=== PATIENT | male | born 1945 | race Caucasian/White ===

== ENCOUNTER → 2016-02-21 | Outpatient (CLI) | payer OTHER ==
[2016-02-21] VITALS (13 sets, daily range): BP systolic 109–143; BP diastolic 33–53; PULSE 54–67; TEMP 36.6; O2SAT 93–100; Ht 177.8 cm; Wt 80.0 kg
[~2016-02-21] VITALS: Ht 177.8 cm; Wt 80.0 kg
[~2016-02-21] MED LIST: AMLO5TAB2 PO; AMOX500C3 PO; ASPCH81 PO; BENZOCAIN/TETRACA/BUTAM SPRAY 200 APPLN/20 GM SPRY ONE; CANNULA ONE; CARV6.252 PO; CYCL0.05 OP; FENTANYL CITRATE INJ 50 MCG/1 ML 2 ML VIAL ONE; GARL1TAB11; HYDR5TAB27 PO; LIDOCAINE HCL 2% VISC SOLN 20 ML UDC ONE; LOSA50TA6 PO; MAGN400T24 PO; METO25TA56 PO; MIDAZOLAM HCL 1 MG/ML 2ML VIAL ONE; MULT-506 PO; NTRGSL/4 UT; NUTRTAB55; OMEG10007 PO; ROSU20TA PO; SENN1TAB65 PO
--- NOTE | 2016-02-21 09:39 | History & Physical Bridge Note ---
H&P Re-Evaluation Bridge Note: I have examined the patient, reviewed the History & Physical and in the interval since the performance of the History & Physical I have noted the following changes of clinical significance: No changes noted
--- NOTE | 2016-02-21 09:40 | Procedure Note ---
Pre-Mod Sedation Assessment General Date of Moderate Sedation: Feb 21, 2016. Vital Signs: Vital Signs Past 12 Hours Date Time Temp Pulse Resp B/P Pulse Ox O2 Delivery O2 Flow Rate FiO2 02/21/16 08:39 36.6 56 16 121/33 98 Room Air Review Cardiovascular: regular rate, rhythm, no murmur Abdomen: non tender Lungs: lungs clear Airway Class: II Pre-Sedation Airway Assessment Oral Cavity: WNL Short Thick Neck: No Hx of Sleep Apnea: No Smoking Status: Never Smoker Mallampati Classification: Class II Procedure Planning Contraindications-for Mod Sed: None Yes Notes The planned sedation has been discussed with the patient and consent obtained. I have identified the patient, determined the appropriateness of sedation and have assessed the patient immediately prior to the procedure. All medicine(s) and interventions are by my order.
--- NOTE | 2016-02-21 09:47 | Cardiology Procedure Brief Nt ---
Preliminary Cardiology Note Procedure Date Feb 21, 2016. Pre-Procedure Diagnosis Bioprosthetic Aortic valve regurgitation Post-Procedure Diagnosis moderate AR Sod Cutter Vonnie Alston DO Inspector Missile(s) EMY Johnson Estimated Blood Loss none Preliminary Findings Moderate AR. Recommendations Continue current medications. Repeat Transthoracic echocardiogram in one year as outpatient. Specimens not applicable Anesthesia 3 mg IV versed, 75 mcg IV fentanyl Complication(s) None Disposition Recovery in cardiopulmonary , then discharge to home.
--- NOTE | 2016-02-21 09:51 | Discharge Instructions ---
Discharge Instructions Procedure Procedure Date: Feb 21, 2016. Reason for Visit: Aortic Valve Regurgitation *[place] To Do. Discharge Discharge Date: Feb 21, 2016. Discharge Diagnosis: Moderate aortic valve regurgitation Last Recorded Wt (Kilograms): 80.000 Anesthesia Post Anesthesia Instructions: If you have had General Anesthesia or IV Sedation: * Do not drive today. * Resume driving when surgeon permits. * Do not make important decisions or sign legal documents today. * Call surgeon for: 1. Temperature elevations greater than 101 degrees F. 2. Uncontrollable pain. 3. Excessive bleeding. 4. Persistent nausea and vomiting. 5. Medication intolerance (nausea, vomiting or rash). * For nausea and vomiting use only clear liquids such as: tea, soda, bouillon until nausea subsides, then gradually increase diet as tolerated. * If you have any concerns or questions, call your surgeon's office. If physician is unavailable and it is an emergency, call 911 or go to the nearest emergency room. Instructions Activity Recommendations: limitations as noted below Recommended Home Diet: resume previous diet Allergies: Coded Allergies: Crab (Unverified Allergy, Unknown, SWELLING, 01/06/14) Lobster (Unverified Allergy, Unknown, SWELLING, 01/06/14) Shrimp (Unverified Allergy, Unknown, SWELLING, 01/06/14) Provider Instructions ACTIVITY RECOMMENDATIONS: Resume activities as tolerated with no limitations unless specified. _x_ No lifting over _10_ pounds for 24 hours. _x_ Do not engage in vigorous exercise, sexual activity, or sports for 24 hours. _x_ Do not drive or operate any motorized equipment for 24 hours. _x_ You may return to work/school tomorrow. _x_ Nothing to eat or drink until gag reflex returns. _x_ No HOT or WARM liquids for _24_ hours. _x_ Avoid "scratchy" foods such as potato chips or pretzels for 24 hours following procedure. SPECIAL CARE: If you experience coughing up or vomiting of blood, contact _Dr Alston __ Follow Up Follow-up with: Dr Alston as planned. Alyson Dent Recommendations: Call your doctor if: * Temperature above 101 degrees * Pain not relieved by pain medicine ordered * There is increased drainage or redness from any incision * You have any unanswered questions or concerns. Your Doctors Instructions noted above were prepared by provider Evangelista Alston. Patient Signature Section: Patient Instructions Signature Page Danial Kim Patient (or Guardian) Signature/Date: I have read and understand the instructions given to me by my caregivers. Caregiver/RN/Doctor Signature/Date: The above-named patient and/or guardian has received patient instructions on this date. + Original Patient Signature Page (only) stays with chart. Please make copy for patient.
--- NOTE | 2016-02-21 11:37 | TEE ---
*NOTICE TO RECEIVING [employer] This information is strictly Confidential and protected under [place] law. [place] law prohibits you from making any further disclosure of this information unless further disclosure is expressly permitted by the written consent of the person to whom it pertains or is authorized by law. A general authorization for the release of medical or other information is not sufficient for this purpose. Hospital accepts no responsibility if the information is made available to any other person, INCLUDING THE PATIENT. Interpretation Summary * Name: SHERMAN CUNNINGHAM Study Date: 02/21/2016 09:04 AM BP: 143/51 mmHg * Patient Location: [facility] HR: 55 * : 1945 (M/d/yyyy) Gender: Male Height: 70 in * Age: 70 yrs Ethnicity: [place] * Ordering Physician: Evangelista Alston DO, FACC * Performed By: Brittney Domingo RCS * * Reason For Study: BIO AORTIC VALVE / AORTIC VALVE REGURGITATION * -- Conclusions -- * There is a bioprosthetic aortic valve. * The bioprosthetic leaflets are freely mobile with no hemodynamically significant aortic stenosis. * Moderate bioprosthetic aortic valve regurgitation is present. * The aortic root and proximal ascending aorta are normal sized. Procedure Details * KASEY Probe #3 was administered. * The study was performed in Cardiopulmonary Department. * Time out was conducted by the physician, nurse, and breeding technician with positive identification of patient and procedure. * Informed consent for Transesophageal Echocardiogram was obtained prior to the procedure. * An intravenous line was placed. A topical anesthetic agent was used for oropharangeal anesthesia. A bite block was inserted. * The patient's vital signs, including blood pressure, heart rate, pulse oximetry and cardiac rhythm were monitored throughout the procedure . * Fentanyl 75 mcg was administered for procedural sedation. * Midazolam 3 mg administered for sedation. * The posterior oropharynx was anesthetized using a topical anesthetic spray. A bite guard was inserted. * A multifrequency, multiplane transesopheageal echocardiographic endoscope was inserted and manipulated in the standard fashion to achieve multiplane views. * The transesophageal probe was passed without difficulty. * The usual views were obtained; basal, mid-esophageal, transgastric and aortic views. * The patient tolerated the procedure well without evidence of orophangeal or esophageal trauma. * A 2D transesophageal echocardiogram with spectral and color flow Doppler was performed. Left Ventricle * The left ventricle is normal in size. * There is normal left ventricular wall thickness. * Left ventricular systolic function is normal. * Ejection Fraction = 60-65%. * The left ventricular wall motion is normal. Right Ventricle * The right ventricle is normal in size and function. Atria * The left atrial size is normal. * No thrombus is detected in the left atrial appendage. * No left atrial mass or thrombus visualized. * Right atrial size is normal. * The interatrial septum is intact with no evidence for an atrial septal defect. Mitral Valve * The mitral valve anatomy is normal. * There is no mitral valve prolapse present. * There is no vegetation seen on the mitral valve. * There is no mitral valve stenosis. * There is mild mitral regurgitation. Tricuspid Valve * The tricuspid valve is normal. * There is no tricuspid stenosis. * There is mild tricuspid regurgitation. Aortic Valve * There is a bioprosthetic aortic valve. * The bioprosthetic leaflets are freely mobile with no hemodynamically significant aortic stenosis. Moderate bioprosthetic aortic valve regurgitation is present. Pulmonic Valve * The pulmonic valve is not well seen, but is grossly normal. Great Vessels * The aortic root and proximal ascending aorta are normal sized. Pericardium * There is no pericardial effusion.
--- NOTE | 2016-02-22 08:31 | Procedure Note ---
Post-Mod Sedation Assessment General Date of Moderate Sedation Feb 22, 2016. Vital Signs: Stable Review - Discharge Criteria Vital Signs Stable: Yes Alert/Oriented/Conversant: Yes Nausea Absent/Minimal: Yes Pain/Discomfort/Absent/Minimal: Yes Normal/Baseline Respirations: Yes Active Bleeding?: No Pt Received D/C Instructions: Yes Prescriptions Given: None Specific Proced. D/C Criteria Distal Pulses Present (Cardiac: N/A Groin site assessed-Card Cath: N/A Voided Prior To Discharge: N/A Discharged Patients Adult Escort/Transportation: Yes
== END | disposition home or self-care (01) ==
LOC: C.CPL 07:55
PROVIDERS: ATTEND Specialist
DX: Z95.2 Presence of prosthetic heart valve (principal)

== ENCOUNTER 2017-04-27 23:41 | Emergency (ER) | payer OTHER ==
[~2017-04-27] VITALS: Ht 177.8 cm; Wt 73.1 kg
[~2017-04-27 23:41] MED LIST changes: -BENZOCAIN/TETRACA/BUTAM SPRAY 200 APPLN/20 GM SPRY ONE; -CANNULA ONE; -CYCL0.05 OP; -FENTANYL CITRATE INJ 50 MCG/1 ML 2 ML VIAL ONE; -LIDOCAINE HCL 2% VISC SOLN 20 ML UDC ONE; -METO25TA56 PO; -MIDAZOLAM HCL 1 MG/ML 2ML VIAL ONE; -MULT-506 PO
[2017-04-27 23:47] VITALS: TEMP 36.4; Ht 177.8 cm; Wt 73.1 kg
[2017-04-27 23:58] VITALS: O2SAT 98
[2017-04-28] MEDS ORDERED: AMLO2.5T PO (00:07)
[2017-04-28] MEDS ORDERED: ASPI81TA28 PO (00:09)
[2017-04-28] MEDS ORDERED: DTR/5 PO (00:13)
[2017-04-28] MEDS ORDERED: MULT60CA PO (00:16)
[2017-04-28] MEDS ORDERED: POLY99.0 OPB (00:23)
[2017-04-28] MEDS ORDERED: SILD1TAB25 PO (00:25)
[2017-04-28 00:28] LABS: HEMATOCRIT 43.2 % (42-52); HEMOGLOBIN 14.8 g/dL (14.0-18.0); MEAN CELL VOLUME 88.7 fL (80-100); MEAN CORPUSCULAR HEMOGLOBIN 30.4 pg (25-34); MEAN CORPUSCULAR HGB CONC 34.3 g/dl (32-36); MEAN PLATELET VOLUME 9.9 fL (7.4-10.4); NUCLEATED RED BLOOD CELL ABS 0.07 K/uL (0-0); PLATELET COUNT 165 K/uL (130-400); RED CELL DISTRIBUTION WIDTH CV 14.2 % (11.5-14.5); RED CELL DISTRIBUTION WIDTH SD 46.1 fL (36.4-46.3); WHITE BLOOD COUNT 10.59 K/uL (4.8-10.8)
[2017-04-28] MEDS ORDERED: GLUC1CAP35 PO (00:36)
[2017-04-28 00:46] LABS: ALBUMIN 3.6 gm/dl (3.4-5.0); ALT/SGPT 60 U/L (12-78); BLOOD UREA NITROGEN 26 mg/dl (7-18); CALCIUM 8.6 mg/dl (8.5-10.1); CARBON DIOXIDE 25 mmol/L (21-32); CREATININE 1.39 mg/dl (0.60-1.40); GLUCOSE 97 mg/dl (70-99); LIPASE 588 U/L (73-393); POTASSIUM 3.9 mmol/L (3.5-5.1); SODIUM 140 mmol/L (136-145)
[2017-04-28 00:52] LABS: ALKALINE PHOSPHATASE 63 U/L (45-117); AST/SGOT 83 U/L (15-37); CKMB 1.4 ng/ml (0.5-3.6)
[2017-04-28 01:06] LABS: BASO % 0.3 %; BASO ABS # 0.03 K/uL (0-0.2); EOS % 1.6 %; EOS ABS # 0.17 K/uL (0-0.5); IG# 0.02 K/uL (0.00-0.02); LYMPH % 55.3 %; LYMPH ABS # 5.86 K/uL (1.2-3.4); MONO % 5.7 %; NEUT % 36.9 %; NEUT ABS # 3.91 K/uL (1.4-6.5)
[2017-04-28 03:36] LABS: LIPASE 841 U/L (73-393)
[2017-04-28 05:19] VITALS: BP 128/74; PULSE 64; O2SAT 98
--- NOTE | 2017-04-28 05:48 | DIAGNOSTIC IMAGING REPORT ---
CHEST ONE VIEW PORTABLE CLINICAL HISTORY: cp/sob dyspnea COMPARISON STUDY: 10/11/2012 FINDINGS: Lungs are clear. Diaphragms are smooth. Prior median sternotomy. No acute infiltrate. IMPRESSION: Negative chest. The above report was generated using voice recognition software. It may contain grammatical, syntax or spelling errors. Electronically signed by: Shimon Lopez M.D. 04/28/2017 5:46 AM Dictated Date/Time: 04/28/2017 5:46 AM
--- NOTE | 2017-04-28 06:15 | EMERGENCY ROOM VISIT NOTE ---
History Report prepared by Monique: Jeanna Zarate Under the Supervision of: Dr. Margot Harmon D.O. First contact with patient: 23:56 Chief Complaint: CHEST PAIN Stated Complaint: CHEST PAIN ON/OFF History of Present Illness The patient is a 72 year old male who presents to the Emergency Room with complaints of intermittent chest pain starting this evening. The patient states that he traveled from [place] by car for 12 hours today. He states that upon arrival he had some wine and a little kielbasa. He reports that the chest pain came on suddenly. He states that he took a nitro and it helped. He reports that he started the half hour car ride into the hospital. He states that he felt the pain return and his mouth filled with water. He reports that he vomited and took another Nitro. He reports that the pain subsided again. The patient states that upon arrival the pain was gone, but reports that it started while getting settled into the room. He currently states that the pain is almost gone. The patient denies leg pain and nausea. He notes that he is unsure if he was short of breath from the pain, but his notes that she heard him gasping while driving in. 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 Source of History: patient Onset: this evening Position: chest Timing: intermittent Modifying Factors (Relieving): other (Nitro) Associated Symptoms: + SOB, + vomiting, No nausea Note: The patient denies leg pain. Review of Systems See HPI for pertinent positives & negatives. A total of 10 systems reviewed and were otherwise negative. Past Medical & Surgical Medical Problems: (1) CLL (chronic lymphocytic leukemia) (2) Coronary artery bypass grafts x 3 (3) Heart disease (4) Hernia repair (5) Hyperlipidemia (6) Replacement of aortic valve Family History Patient reports no known family medical history. Social History Smoking Status: Never Smoker Alcohol Use: occasionally Marital Status: Housing Status: lives with family Occupation Status: retired Current/Historical Medications Scheduled Amlodipine (Norvasc), 2.5 MG PO DAILY Amoxicillin (Amoxil), 500 MG PO PRN/UD Aspirin (Aspirin Ec), 81 MG PO DAILY Carvedilol (Coreg), 6.25 MG PO BID Zyijsyqofyt-Lqhtaryzzzp-Dzf C- (Glucosamine Chondroitin), 1 CAP PO BID Losartan Potassium (Cozaar), 50 MG PO DAILY Multiple Vitamins W/ Minerals (Preservision Areds 2), 1 CAP PO BID Nitroglycerin (Nitrostat), 0.4 MG UT PRN Polyvinyl Alcohol (Artificial Tears), 1 DROP OPB BID Rosuvastatin Calcium (Crestor), 20 MG PO DAILY Sildenafil Citrate (Revatio), 20-100 MG PO PRN Scheduled PRN Oxybutynin Chloride (Ditropan), 5 MG PO TID PRN for BLADDER SPASMS Allergies Coded Allergies: Crab (Unverified Allergy, Unknown, SWELLING, 01/06/14) Iodinated Diagnostic Agents (Verified Allergy, Unknown, UNKNOWN, 04/28/17) Lobster (Unverified Allergy, Unknown, SWELLING, 01/06/14) Shrimp (Unverified Allergy, Unknown, SWELLING, 01/06/14) Physical Exam Vital Signs Date Time Temp Pulse Resp B/P (MAP) Pulse Ox O2 Delivery O2 Flow Rate FiO2 04/28/17 05:19 64 18 128/74 98 04/28/17 03:42 63 20 126/48 95 Room Air 04/28/17 02:04 74 18 107/45 95 Room Air 04/28/17 00:38 58 18 143/88 92 Room Air 04/28/17 00:00 57 04/27/17 23:58 98 Room Air 04/27/17 23:47 36.4 56 16 141/49 97 Room Air Physical Exam HEENT: Head - normocephalic and atraumatic Pupils are equal, round, and reactive to light. Extraocular eye muscles are intact, and sclera are anicteric. Nose - moist nasal mucosa without discharge. Mouth - moist buccal mucosa. Oropharynx is nonerythematous and there is no tonsillar exudate or edema noted. Neck: Supple; no JVD, nuchal rigidity, cervical lymphadenopathy. Heart: Regular rate and rhythm. There is a normal S1 and S2 with no murmurs, clicks, or gallops appreciated. Lungs: Clear to auscultation bilaterally with no wheezes, rales, or rhonchi. Abdomen: Soft, slight tenderness to palpation in the epigastrium, nondistended, with good bowel sounds. There are no palpable pulsatile masses or hepatosplenomegaly. There is no guarding, rigidity, or rebound noted. Extremities: No evidence of cyanosis, clubbing, or edema. There are easily palpable peripheral pulses. Skin: warm and dry with good turgor and no rashes. Medical Decision & Procedures ER Provider Diagnostic Interpretation: Radiology results as stated below per my review and the radiologist's interpretation: CHEST X-RAY: The results were interpreted by me. No obvious cardiomegaly. No pneumothorax or pulmonary consolidation. Narrow mediastinum . CT ABDOMEN & PELVIS Without Contrast: Lower thorax is unremarkable. Probable cyst within the left hepatic lobe. Gallbladder is surgically absent. Spleen, pancreas, and adrenal glands are unremarkable. Atrophy of the right kidney with a nonobstructing calculus. Left kidney is unremarkable. Prostate gland is mildly enlarged. Noninflamed colonic diverticulosis. Appendix is not clearly identified. Vascular calcifications. No acute osseous abnormality. Radiologist: Carlos Nascimento MD Study ready at 04:27 and initial results were transmitted at 04:46. Laboratory Results 04/27/17 23:58 Red Blood Count 4.87, Mean Corpuscular Volume 88.7, Mean Corpuscular Hemoglobin 30.4, Mean Corpuscular Hemoglobin Concent 34.3, Mean Platelet Volume 9.9, Neutrophils (%) (Auto) 36.9, Lymphocytes (%) (Auto) 55.3, Monocytes (%) (Auto) 5.7, Eosinophils (%) (Auto) 1.6, Basophils (%) (Auto) 0.3, Neutrophils # (Auto) 3.91, Lymphocytes # (Auto) 5.86, Monocytes # (Auto) 0.60, Eosinophils # (Auto) 0.17, Basophils # (Auto) 0.03 04/27/17 23:58 Test 04/27/17 23:58 04/28/17 02:05 White Blood Count 10.59 K/uL (4.8-10.8) Red Blood Count 4.87 M/uL (4.7-6.1) Hemoglobin 14.8 g/dL (14.0-18.0) Hematocrit 43.2 % (42-52) Mean Corpuscular Volume 88.7 fL (80-100) Mean Corpuscular Hemoglobin 30.4 pg (25-34) Mean Corpuscular Hemoglobin Concent 34.3 g/dl (32-36) Platelet Count 165 K/uL (130-400) Mean Platelet Volume 9.9 fL (7.4-10.4) Neutrophils (%) (Auto) 36.9 % Lymphocytes (%) (Auto) 55.3 % Monocytes (%) (Auto) 5.7 % Eosinophils (%) (Auto) 1.6 % Basophils (%) (Auto) 0.3 % Neutrophils # (Auto) 3.91 K/uL (1.4-6.5) Lymphocytes # (Auto) 5.86 K/uL (1.2-3.4) Monocytes # (Auto) 0.60 K/uL (0.11-0.59) Eosinophils # (Auto) 0.17 K/uL (0-0.5) Basophils # (Auto) 0.03 K/uL (0-0.2) RDW Standard Deviation 46.1 fL (36.4-46.3) RDW Coefficient of Variation 14.2 % (11.5-14.5) Immature Granulocyte % (Auto) 0.2 % Immature Granulocyte # (Auto) 0.02 K/uL (0.00-0.02) Nucleated RBC Absolute Count (auto) 0.07 K/uL (0-0) Nucleated Red Blood Cells % 0.7 % Blood Smear Review Red Blood Cell Morphology Unremarkable D-Dimer 390 ug/L FEU (0-500) Anion Gap 8.0 mmol/L (3-11) Est Creatinine Clear Calc Drug Dose 48.1 ml/min Estimated GFR () 57.5 Estimated GFR (Non- 49.6 BUN/Creatinine Ratio 18.8 (10-20) Calcium Level 8.6 mg/dl (8.5-10.1) Total Bilirubin 0.6 mg/dl (0.2-1) Direct Bilirubin 0.2 mg/dl (0-0.2) Aspartate Amino Transf (AST/SGOT) 83 U/L (15-37) Alanine Aminotransferase (ALT/SGPT) 60 U/L (12-78) Alkaline Phosphatase 63 U/L (45-117) Total Creatine Kinase 58 U/L (39-308) Creatine Kinase MB 1.4 ng/ml (0.5-3.6) Creatine Kinase MB Ratio 2.4 (0-3.0) Total Protein 7.0 gm/dl (6.4-8.2) Albumin 3.6 gm/dl (3.4-5.0) Troponin I < 0.015 ng/ml (0-0.045) Lipase 841 U/L (73-393) Laboratory results per my review. ECG Per My Interpretation Indication: chest pain Rate (beats per minute): 55 Rhythm: sinus bradycardia Findings: no acute ischemic change, no ectopy Comparison ECG Date: REPEAT Change: The repeat EKG was performed while the patient was having chest pain. Sinus bradycardia at a rate of 57. No acute ischemia. No ectopy. ED Course 7618: Past medical records reviewed. The patient was evaluated in room B2. A complete history and physical exam was performed. A 12-lead EKG was obtained as described above. An IV lock was initiated and labs are drawn as above. The patient had an episode of vomiting upon arrival and has felt better since. 0145: I reevaluated the patient and he is doing well. 0338: I updated the patient that we are still waiting for labs and he is sound asleep. The patient had a mildly elevated lipase on his initial lab work. We have repeated this and are awaiting the result. 0352: The patient's lipase has gone up by 300 and therefore he will go for a CT scan of the abdomen/pelvis to rule out pancreatitis. I updated the patient on his test results and notified him that he needs a CT. 0508: Upon reevaluation, the patient is comfortable. I discussed findings and results with him. He verbalized agreement of the treatment plan. The patient was discharged home. Medical Decision The patient is a 72 year old male who presents to the Emergency Room with complaints of intermittent chest pain starting today. Differential diagnoses include PE, ACS, GERD, pancreatitis, aortic dissection. LABS: First Lipase 588, Second lipase 841 LFTs normal Two troponin were negative BUN 26 Creatinine 1.3 No leukocytosis Stable H&H D-Dimer 390 This is a 72-year-old male patient who presents to the emergency department with severe chest discomfort, nausea and vomiting. The patient states that the symptoms were sudden onset. He does describe feeling much better after his episode of vomiting. EKG was unremarkable. The patient had 2 sets of negative cardiac enzymes. Patient had a mildly elevated lipase upon arrival. This was repeated and had gone up even higher. For that reason, the patient went for a CT scan of the abdomen/pelvis to rule out pancreatitis. This was negative. The patient's repeat exam revealed no epigastric pain with palpation. He was encouraged to take a bland diet and avoid alcohol over the next couple days. He is to follow-up with his PCP for a recheck Medication Reconcilliation Current Medication List: was personally reviewed by me Blood Pressure Screening Patient's blood pressure: Normal blood pressure Blood pressure disposition: Did not require urgent referral Impression Primary Impression: Midsternal chest pain Additional Impression: Vomiting Scribe Attestation The scribe's documentation has been prepared under my direction and personally reviewed by me in its entirety. I confirm that the note above accurately reflects all work, treatment, procedures, and medical decision making performed by me. Departure Information Dispostion Home / Self-Care Referrals Kinsey Connor M.D. (PCP) Forms Call Back Authorization, HOME CARE DOCUMENTATION FORM, IMPORTANT VISIT INFORMATION Patient Instructions My [facility] Additional Instructions Rest Take a very bland diet and plenty of clear liquids Follow up with PCP this week for repeat lipase. Return to the ER if you develop worsening symptoms Problem Qualifiers Additional Impression: Vomiting Vomiting type: unspecified Vomiting Intractability: non-intractable Nausea presence: with nausea Qualified Codes: R11.2 - Nausea with vomiting, unspecified
--- NOTE | 2017-04-28 06:22 | DIAGNOSTIC IMAGING REPORT ---
ABD/PELVIS NO IV OR ORAL CONT CT DOSE: 366.58 mGy.cm HISTORY: Pain eval for pancreatitis (dye allergy) TECHNIQUE: Multiaxial CT images of the abdomen and pelvis were performed without contrast. A dose lowering technique was utilized adhering to the principles of ALARA. COMPARISON STUDY: 10/10/2012 FINDINGS: Findings of an interval cholecystectomy. Lung bases are considered clear. Small stable hepatic cyst. Atrophy of the right kidney with a small nonobstructing cortical calcification. Left kidney is negative for hydronephrosis. Nonobstructive bowel pattern. Chronic sigmoid diverticulosis. No evidence for acute diverticulitis. IMPRESSION: 1. Stable atrophy right kidney. 2. Interval cholecystectomy. 3. Chronic sigmoid diverticulosis. 4. No acute process of the abdomen or pelvis. The above report was generated using voice recognition software. It may contain grammatical, syntax or spelling errors. Electronically signed by: Shimon Lopez M.D. 04/28/2017 6:21 AM Dictated Date/Time: 04/28/2017 6:19 AM
== END 2017-04-28 05:20 | disposition home or self-care (01) ==
LOC: C.EDB 23:42
DX: R07.89 Other chest pain (principal); R11.10 Vomiting, unspecified; E78.5 Hyperlipidemia, unspecified; Z95.3 Presence of xenogenic heart valve; Z85.6 Personal history of leukemia; Z95.1 Presence of aortocoronary bypass graft; Z79.82 Long term (current) use of aspirin

== ENCOUNTER 2018-12-10 12:30 | Inpatient (IN) ==
[2018-12-10 12:53] LABS: Basophils # (auto) 0.03 K/uL (0-0.2); Basophils % (auto) 0.3 %; Eosinophils # (auto) 0.06 K/uL (0-0.5); Eosinophils % (auto) 0.7 %; Hematocrit (blood only) 45.2 % (42-52); Hemoglobin 15.3 g/dL (14.0-18.0); Immature Granulocytes # (auto) 0.01 K/uL (0.00-0.02); Immature Granulocytes % (auto) 0.1 %; Lymphocytes # (auto) 3.92 K/uL (1.2-3.4); Lymphocytes % (auto) 43.7 %; Mean Corpuscular Hemoglobin 29.9 pg (25-34); Mean Corpuscular Hgb Conc 33.8 g/dL (32-36); Mean Corpuscular Volume 88.3 fL (80-100); Mean Platelet Volume 10.1 fL (7.4-10.4); Monocytes % (auto) 6.7 %; Neutrophils # (auto) 4.36 K/uL (1.4-6.5); Neutrophils % (auto) 48.5 %; Platelet Count 154 K/uL (130-400); RDW Coefficient of Variation 14.1 % (11.5-14.5); RDW Standard Deviation 45.8 fL (36.4-46.3); Red Blood Count 5.12 M/uL (4.7-6.1); White Blood Count 8.98 K/uL (4.8-10.8)
[2018-12-10 13:10] LABS: Albumin Level 3.7 gm/dl (3.4-5.0); Creatinine Clr Calc Pharmacy 50.7 ml/min; Est GFR (African American) 61.9; Est GFR (Non-African American) 53.4; Potassium 4.8 mmol/L (3.5-5.1)
[2018-12-10 13:15] LABS: Albumin Globulin Ratio 1.2 (0.9-2); Bilirubin,Total 0.8 mg/dl (0.2-1); Globulin 3.1 gm/dl (2.5-4.0); Total Protein 6.8 gm/dl (6.4-8.2); Troponin I 0.018 ng/ml (0-0.045)
--- NOTE | 2018-12-10 13:18 | XRay Report ---
XR chest 1V portable CLINICAL HISTORY: Chest Pain pain COMPARISON STUDY: 11/17/2017 FINDINGS: The lungs are clear. Prior median sternotomy. Diaphragms are smooth. IMPRESSION: No acute process. The above report was generated using voice recognition software. It may contain grammatical, syntax or spelling errors. Electronically signed by: Shimon Lopez M.D. 12/10/2018 1:17 PM
--- NOTE | 2018-12-10 13:23 | Cardiology Consultation ---
Date of Consultation December 10, 2018 Assessment & Plan (1) Third degree AV block: Patient presents with one week of exertional shortness of breath, easy fatigability, and dizziness. Currently on my assessment the emergency room, he is in third-degree atrioventricular block with a stable ventricular escape rhythm, and he is normotensive. The patient is an avid outdoorsman. He had recently been bird hunting, and some ticks were removed from his dog, and an engorged tick was actually found on the patient's bed, but he believes it could have come from his dog. He personally did not have any ticks removed from his body recently, he has not had any rashes, and he has not had any flulike illness within the last few weeks. He had actually planned to go to [place] on a hunting trip and then to travel to [place] to observe his son who is to complete in an off road automobile race on 11/21/18. Although he is at risk for tick bite, he has a substrate for conduction system disease having had redo aortic valve replacement, with transient postoperative AV block, and then new left bundle branch block noted postoperatively. His electrolytes are within normal limits. He denies any symptoms suggestive angina, and stable chronic coronary heart disease was noted at the time of his preoperative cardiac catheterization earlier this year with stable [place] vessel CAD and patent bypass grafts x3. Plan to admit the patient to the intensive care unit for further observation. I do not think he requires temporary transvenous pacemaker at present because he is hemodynamically stable. Patient will be made n.p.o. after midnight tonight for possible pacemaker tomorrow. A bedside echocardiogram is to be performed to reassess his ejection fraction. Given anticipated need for chronic ventricular pacing, and his pre-existing left bundle branch block, consideration will be made at the time of EP assessment for the most optimal pacing strategy either a dual-chamber device or even a cardiac resynchronization capable device. Case was discussed with Dr. Mancera of EP and as long as the Lyme screen does not come back suggestive of acute infection will plan on pacemaker 12/11/18. Will hold patient's home dose of metoprolol and losartan. History of Present Illness History of Present Illness Danial Kim is a 73 year old male seen in cardiology consultation in the emergency department per the request of Dr Gutierrez for the evaluation of symptomatic bradycardia, complete atrioventricular block. The patient is well-known to the undersigned as I follow him as an outpatient. 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 The patient is very physically active at baseline. And had recovered very well from his surgery. He was back to hiking and hunting. In October, he had contacted me at the office requesting permission to cease cardiac rehabilitation, because he felt that it was not challenging enough for him. Over the last week however he had experienced a dramatic change in his act ivity tolerance. He typically walks behind his who rides a horse. He noted that especially walking up an incline he felt market shortness of breath over the last few days. Most recently yesterday, he had to stop and rest 3 times while walking up the hill. This was similar to the symptom which prompted his redo surgery. He was therefore seen as an acute visit by Shimon Carlos PA-C of our practice today and he was found to have bradycardia with EKG findings of third-degree AV block, with ventricular escape rhythm in the 40 to 45 bpm range at rest. His blood pressure was normal in the office with reading of 122/76. When I had seen him in the emergency room, room C9, a blood pressure was retaken during my assessment and was 139/76. He notes no tammi syncope, but he did note dizziness yesterday. As noted, the patient is status post redo bioprosthetic aortic valve replacement at [facility] in August 2018. His postoperative course was comp gated by anemia and complete heart block with junctional rhythm. Ultimately he returned to sinus rhythm with a new left bundle branch block. An echocardiogram performed in September 2018 as an outpatient revealed mild left ventricular systolic dysfunction and abnormal septal motion consistent with left bundle branch block both of which were new developments as his ejection fraction had been normal preoperatively. Problem List: 1.Congenitally bicuspid aortic valve with severe aortic valve stenosis and multivessel coronary artery disease status post AVR and CABG x3 in 2005, 25 mm Marquis-Waller bioprosthesis, JAIN to the LAD, SVG to the circumflex, SVG to the distal RCA at that time. 2.[facility] Right-dominant coronary anatomy. 40% ostial left main. 50% lad stenosis after the 2nd diagonal branch. Non dominant left circumflex with the origin narrowed by 50%. 60% ostial RCA stenosis, 60% proximal stenosis, 40% midvessel stenosis. Patent JAIN to the LAD 2nd diagonal. Patent SVG to the circumflex obtuse marginal with moderate ectasia of the vessel. Patent SVG to the right PDA. 3.Redo AVR on September 02, 2018 due to bioprosthetic valve dysfunction, severe ao rtic insufficiency, 25 mm [place] Epic prosthesis 4.Hypertension 5.Dyslipidemia 6.Left bundle branch block 7.Mild reduction in left ventricular systolic function, EF 45%. 8.Chronic lymphocytic leukemia 9.Chronic kidney disease Allergies Allergy/AdvReac Type Severity Reaction Status Date / Time crab Allergy Unknown SWELLING Verified 08/06/18 07:27 Iodinated Contrast Media Allergy Unknown CHEST Verified 08/06/18 07:27 DISCOMFORT shrimp Allergy Unknown SWELLING Verified 08/06/18 07:27 Lobster Allergy Unknown SWELLING Uncoded 08/06/18 07:27 Home Medications Home Medications Medication Instructions Recorded Confirmed Type Glucosamine-Chondroitin Complx 1 cap PO BID 11/17/17 08/06/18 History PreserVision AREDS-2 1 tab PO BID 11/17/17 08/06/18 History amlodipine 2.5 mg PO QAM 11/17/17 08/06/18 History amoxicillin 500 mg PO DIRECTED PRN 11/17/17 08/06/18 History aspirin 81 mg PO QAM 11/17/17 08/06/18 History carvedilol 3.125 mg PO BID 11/17/17 08/06/18 History losartan 50 mg PO QAM 11/17/17 08/06/18 History nitroglycerin [Nitrostat] 0.4 mg SUBLINGUAL DIRECTED PRN 11/17/17 08/06/18 History polyvinyl alcohol [Artificial 1 drp OPB BID 11/17/17 08/06/18 History Tears (polyvin alc)] rosuvastatin [Crestor] 20 mg PO QPM 11/17/17 08/06/18 History Patient History Medical History CAD (coronary artery disease) CABG X3 (2005)- JAIN-LAD, SVG-CX, SVG-DRCA Fatigue FELT 2/2 VALVULAR DISEASE PER PT Hx of chronic lymphocytic leukemia ASYMPTOMATIC; ONCOLOGY MONITORING WITH ROUTINE CBCD Hyperlipidemia Hypertension Valvular heart disease S/P BIOPROSTHETIC AVR 2/2 BICUSPID/AORTIC STENOSIS (2005) Family History Other No pertinent family history Social History Preferred Language: Bulgarian Communication Ability: Effective Beliefs That Will Affect Care: None marital status: Current Living Situation: Spouse current occupational status: retired current occupation: retired Feels Safe at Home: Yes Smoking Status: Never smoker Second Hand Exposure: No ; Hx Alcohol Use: Yes Alcohol type: wine Hx Substance Use: No Review of Systems Review of Systems: All systems reviewed & are unremarkable except as noted in HPI & below Physical Exam Physical Exam: Temp Pulse Resp BP Pulse Ox 36.6 C 43 L 17 139/76 99 12/10/18 12:41 12/10/18 13:01 12/10/18 13:01 12/10/18 13:01 12/10/18 13:01 Constitutional: WD/WN, vitals as above Respiratory: normal respiratory effort, lungs clear to auscultation Cardiovascular: Rate/Rhythm: regular rhythm and + bradycardic Heart Sounds: normal S1 and normal S2; no murmur Vessels: no JVD Extremities: no edema Gastrointestinal (Abdomen): normal bowel sounds, soft, nontender, no hepatosplenomegaly Skin: no rashes, warm and dry Neurologic: PERRL, EOMI, accommodation nl, no face palsy, no dysarthria Results & Data Vital Signs (Past 12 Hours) Vital Signs Temp Pulse Resp BP Pulse Ox 12/10/18 13:01 43 L 17 139/76 99 12/10/18 13:00 43 L 15 99 12/10/18 12:50 43 L 17 99 12/10/18 12:41 36.6 C 46 L 18 163/93 H 100 12/10/18 12:40 45 L 22 12/10/18 12:38 45 L 18 164/103 H Diagnostic Findings EKG performed upon arrival to the emergency department revealed third-degree AV block, with ventricular rate of 43 bpm, new compared to prior outpatient EKG 09/23/18 that revealed sinus rhythm with left bundle branch block, AZ interval of 186 ms. Summary of ttecho performed 09/27/18: The left ventricular cavity size is normal. The LV wall thickness is borderline increased (concentric). The septal motion is abnormal consistent with left bundle branch block. The septal motion is abnormal consistent with the post-operative state. There is borderline diffuse left ventricular hypokinesis. The qualitative LV ejection fraction is 45-49% (mildly reduced). There is an aortic valve bioprosthetic present. The aortic valve prosthesis systolic gradients are normal for this type prosthesis. Significant aortic valve prosthesis regurgitation is absent. The mitral valve leaflets thickness is mildly increased. There is trace mitral insufficiency There is trace tricuspid insufficiency There is no evidence of pulmonary hypertension.
[2018-12-10 13:47] LABS: Lyme Ab IgG w/WB Rflx Negative (Negative); Lyme Ab IgM w/WB Rflx Negative (Negative)
--- NOTE | 2018-12-10 14:16 | History & Physical Report ---
Date of Service December 10, 2018 Assessment & Plan (1) Third degree AV block: This is a 73yo M with a PMH of bioprosthetic redo AV replacement @ [facility] in August CAD (s/p CABG in 2005), LBBB, systolic HF, CLL and other medical problems listed below who presents with fatigue and shortness of breath x 1 week and was found to have complete heart block. -Seen in cardiology clinic today by Shimon Carlos PA-C and was found to have bradycardia with EKG findings of third-degree AV block with ventricular escape rhythm in the 40 to 45 bpm range at rest -Heart rate remains in low 40s in ED. BP normotensive at 129/65 -Evaluated by Dr. Alston in ED, who does not feel patient requires temporary transvenous pacemaker at present because he is hemodynamically stable -NPO after midnight tonight for possible pacemaker tomorrow -2D echo with LVEF 45-50% , unchanged compared to 09/2018 -Admitted to ICU for monitoring. Management per parole director -Hold patient's home dose of metoprolol and losartan -Lyme serology negative (2) Dyslipidemia: Continue statin (3) History of aortic valve replacement with bioprosthetic valve: H/o bioprosthetic redo AV replacement @ [facility] in August. Original AV replacement performed in 2005 (4) CLL (chronic lymphocytic leukemia): Follows with heme onc. Asymptomatic from his CLL and lymphocytosis is mild -Next heme onc appt in April 2019 DVT Ppx: SCDs Code status: FULL PCP: Nikolas Dispo: Admitted to ICU. Discharge planning ordered. Patient seen in collaboration with Dr. Anderson. Please see addendum. History of Present Illness Chief Complaint: fatigue, dyspnea on exertion Primary Care Provider: Kinsey Connor MD This is a 73yo M with a PMH of bioprosthetic redo AV replacement @ [facility] in August CAD (s/p CABG in 2005), LBBB, systolic HF, CLL and other medical problems listed below who presents with fatigue and shortness of breath x 1 week. Is very physically active at baseline with hiking and hunting but recently noticed a decline in activity tolerance, becoming SOB walking up an incline and having to stop. Also endorses dizziness yesterday. Denies near syncope, lightheadedness, chest pain or palpitations. Was seen in cardiology clinic today by Shimon Carlos PA-C and was found to have bradycardia with EKG findings of third-degree AV block with ventricular escape rhythm in the 40 to 45 bpm range at rest. Was evaluated by Dr. Alston in ED, who does not feel patient requires temporary transvenous pacemaker at present because he is hemodynamically stable. Also obtained lyme ab since patient is an avid outdoorsman. Will plan to admit to ICU. Dr. Mancera of EP plans for pacemaker placement tomorrow (12/11/18) as long as the Lyme screen does not come back suggestive of acute infection. Will hold patient's home dose of metoprolol and losartan. Denies fever, chills, visual changes, shortness of breath, wheezing, nausea, vomiting, abdominal pain, dysuria, diarrhea or constipation. Allergies Allergy/AdvReac Type Severity Reaction Status Date / Time crab Allergy Unknown SWELLING Verified 08/06/18 07:27 Iodinated Contrast Media Allergy Unknown CHEST Verified 08/06/18 07:27 DISCOMFORT shrimp Allergy Unknown SWELLING Verified 08/06/18 07:27 Lobster Allergy Unknown SWELLING Uncoded 08/06/18 07:27 Home Medications Home Medications Medication Instructions Recorded Confirmed Type PreserVision AREDS-2 1 tab PO BID 11/17/17 12/10/18 History amoxicillin 500 mg PO DIRECTED PRN 11/17/17 12/10/18 History aspirin 81 mg PO QAM 11/17/17 12/10/18 History losartan 50 mg PO QAM 11/17/17 12/10/18 History nitroglycerin [Nitrostat] 0.4 mg SUBLINGUAL DIRECTED PRN 11/17/17 12/10/18 History polyvinyl alcohol [Artificial 1 drp OPB BID 11/17/17 12/10/18 History Tears (polyvin alc)] rosuvastatin [Crestor] 20 mg PO QPM 11/17/17 12/10/18 History metoprolol succinate 25 mg PO DAILY 12/10/18 12/10/18 History Past Med/Surg History Medical History CAD (coronary artery disease) (Chronic) CABG X3 (2005)- JAIN-LAD, SVG-CX, SVG-DRCA Hx of chronic lymphocytic leukemia (Chronic) ASYMPTOMATIC; ONCOLOGY MONITORING WITH ROUTINE CBCD Hyperlipidemia (Chronic) Hypertension (Chronic) Valvular heart disease (Chronic) S/P BIOPROSTHETIC AVR 2/2 BICUSPID/AORTIC STENOSIS (2006) Surgical History Hx of cholecystectomy (Chronic) History of cataract surgery (Chronic) Hx of artificial heart valve replacement (Chronic) S/P AVR + CABG X3 (2005) History of heart valve replacement (Resolved) redo sternotomy and redo AVR on 09/07/2018 Family History Other Lung disease Social History Preferred Language: Lithuanian Communication Ability: Effective Beliefs That Will Affect Care: None marital status: Current Living Situation: Spouse current occupational status: retired current occupation: retired Feels Safe at Home: Yes Smoking Status: Never smoker Second Hand Exposure: No ; Hx Alcohol Use: Yes Alcohol type: wine Hx Substance Use: No Review of Systems Review of Systems: At least ten systems reviewed and negative except as noted in the HPI. Physical Exam Physical Exam: General Appearance: WD/WN, vitals as above, NAD, sitting up in bed, pleasant, conversing easily Head: normocephalic, atraumatic Eyes: normal inspection, PERRL, conjunctivae normal, anicteric sclerae ENT: external ear and nose normal, oropharynx normal Neck: trachea midline, no thyromegaly normal visual inspection Respiratory: normal respiratory effort, lungs clear to auscultation, no wheeze, rales, rhonchi. Normal insp/exp effort, no accessory muscle use Cardiovascular: bradycardic, regular rhythm, no murmur appreciated, normal peripheral pulses. Vessels: no JVD or carotid bruit Chest: normal inspection of chest Abdomen/GI: normal bowel sounds, soft, nontender, no hepatosplenomegaly Extremities/Musculoskelatal: no cyanosis or clubbing, extremities motor strength 5/5 Neurologic: PERRL, EOMI, accommodation nl, no face palsy, no dysarthria CN's II-XI intact bilaterally and moves all extremities Psychiatric: A+Ox3, euthymic affect Skin: no rashes, normal color, warm/dry Results & Data Vital Signs (Past 12 Hours) Vital Signs Temp Pulse Resp BP Pulse Ox 12/10/18 13:01 43 L 17 139/76 99 12/10/18 13:00 43 L 15 99 12/10/18 12:50 43 L 17 99 10/29/19 12:41 36.6 C 46 L 18 163/93 H 100 12/10/18 12:40 45 L 22 12/10/18 12:38 45 L 18 164/103 H Laboratory Results Short CBC 12/10/18 Range/Units 12:48 WBC 8.98 (4.8-10.8) K/uL Hgb 15.3 (14.0-18.0) g/dL Hct 45.2 (42-52) % Plt Count 154 (130-400) K/uL BMP 12/10/18 12:48 Sodium 139 Potassium 4.8 Chloride 107 Carbon Dioxide 26 BUN 21 H Creatinine 1.30 Glucose 96 Calcium 9.0 Cardiac Enzymes 12/10/18 Range/Units 12:48 Troponin I 0.018 (0-0.045) ng/ml Liver Function 12/10/18 Range/Units 12:48 Total Bilirubin 0.8 (0.2-1) mg/dl AST 47 H (15-37) U/L ALT 92 H (12-78) U/L Alkaline Phosphatase 105 (45-117) U/L Albumin 3.7 (3.4-5.0) gm/dl Diagnostic Findings CXR: IMPRESSION: No acute process. ECG Findings: + complete heart block Supervising Physician Co-Signing Physician Notes I have seen and examined the patient and have discussed the case with the provider above. I agree with the assessment and plan as stated with the following exceptions. The patient is a 73-year-old athletic man with a history of congenital bicuspid aortic valve status post replacement in 2005 and subsequent bioprosthetic valve revision in August 2018 presents with complete heart block. He was known to have post operative complete heart block and underlying left bundle branch block which resolved. He subsequently has felt a couple weeks of dyspnea shortness of breath that was associated with mild dizziness and was seen in the office to have A-V dissociation. Physical exam reveals hemodynamic stability. The patient is in no acute distress and is mentating clearly. He is in no respiratory distress. Lungs are clear to auscultation. S1 and S2 are heard with no evidence of murmurs, gallops, rubs. There is no peripheral edema present. No evidence of JVD. Cardiology was consulted and after Lyme serology was negative, EP was consulted for pacemaker placement tomorrow. He was admitted to the ICU for monitoring overnight. Justin DO
--- NOTE | 2018-12-10 14:22 | Critical Care Consultation ---
Date of Consultation December 10, 2018 Assessment & Plan (1) Third degree AV block: -- Third Degree AV block She has new onset third-degree AV block with exertional shortness of breath and easy fatigability. Patient had an underlying left bundle branch block after his repeat AVR done in August 2018. This is likely late complication of his AVR. Patient is a maintaining his blood pressure. Denies any dizziness, no palpitations or syncopal episodes at the time of examination. Given that the patient had taken beta-hunter in the morning we will give him 5mg of glucagon. If there is any hemodynamic compromise we will start the patient on dopamine and put a transvenous pacing wire. Possible of putting a transvenous pacemaker was discussed with the patient. Case was discussed with cardiology Dr. Farias and he has scheduled the patient for pacemaker placement tomorrow in the morning. Patient will be n.p.o. post midnight. Lyme serologies has been negative. -- History of hypertension Hold beta-blockers and antihypertensives medication for the time being --Dyslipidemia Continue with statin --History of bioprosthetic AVR with coronary artery bypass --Secondary hypercoagulable state Lovenox Present on Admission?: Yes (2) Hypertension: (3) Dyslipidemia: (4) History of aortic valve replacement with bioprosthetic valve: History of Present Illness Reason for Consultation: Third-degree AV block History of Present Illness 73-year-old male with past medical history of congenital bicuspid aortic valve status post first replacement in 2015, patient had revision of his bioprosthetic valve done in August 2018, underlying left bundle branch block, hypertension, dyslipidemia comes to the ER sent from hospice nurse office as patient was complaining of exertional dyspnea and shortness of breath associated with mild dizziness. This has been going on since last couple of days. Patient denies any chest pain. After the aortic valve surgery patient was doing pretty good with that his day-to-day activities to such an extent that he did not even need to go to a cardiac rehab. Patient is active morena. Patient denies any knowledge of any tick bites. No rash as per the patient and the who was present at bedside. Patient denies any fever or chills. Does complain of malaise especially after walking or doing any kind of exertion. No cough, no diarrhea, no dysuria. No weight loss, no night sweats. No joint pain. Patient does take beta-hunter at home and he took last dose in the morning today. Patient blood pressure at the time of examination in the ER was 136/ 76 with heart rate of 43. In the ER patient was found to have complete heart block on his EKG with axis. T wave inversions appreciated from V1 to V4. Widened QRS with right bundle branch block pattern. Social history: Non-smoker, no illicit drug use, occasional alcohol. Retired Allergies: Shrimp and iodinated contrast Allergies Allergy/AdvReac Type Severity Reaction Status Date / Time crab Allergy Unknown SWELLING Verified 08/06/18 07:27 Iodinated Contrast Media Allergy Unknown CHEST Verified 08/06/18 07:27 DISCOMFORT shrimp Allergy Unknown SWELLING Verified 08/06/18 07:27 Lobster Allergy Unknown SWELLING Uncoded 08/06/18 07:27 Home Medications Home Medications Medication Instructions Recorded Confirmed Type PreserVision AREDS-2 1 tab PO BID 11/17/17 08/06/18 History amoxicillin 500 mg PO DIRECTED PRN 11/17/17 08/06/18 History aspirin 81 mg PO QAM 11/17/17 08/06/18 History losartan 50 mg PO QAM 11/17/17 08/06/18 History nitroglycerin [Nitrostat] 0.4 mg SUBLINGUAL DIRECTED PRN 11/17/17 08/06/18 History polyvinyl alcohol [Artificial 1 drp OPB BID 11/17/17 08/06/18 History Tears (polyvin alc)] rosuvastatin [Crestor] 20 mg PO QPM 11/17/17 08/06/18 History metoprolol succinate 25 mg PO DAILY 12/10/18 12/10/18 History Patient History Medical History CAD (coronary artery disease) CABG X3 (2005)- JAIN-LAD, SVG-CX, SVG-DRCA Fatigue FELT 2/2 VALVULAR DISEASE PER PT Hx of chronic lymphocytic leukemia ASYMPTOMATIC; ONCOLOGY MONITORING WITH ROUTINE CBCD Hyperlipidemia Hypertension Valvular heart disease S/P BIOPROSTHETIC AVR 2/2 BICUSPID/AORTIC STENOSIS (2005) Family History Other No pertinent family history Social History Preferred Language: Burundian Communication Ability: Effective Beliefs That Will Affect Care: None marital status: Current Living Situation: Spouse current occupational status: retired current occupation: retired Feels Safe at Home: Yes Smoking Status: Never smoker Second Hand Exposure: No ; Hx Alcohol Use: Yes Alcohol type: wine Hx Substance Use: No Review of Systems Review of Systems: All systems reviewed & are unremarkable except as noted in HPI & below Physical Exam Physical Exam: Constitutional: No acute distress HEENT: EOMI, PERRLA, no JVD Respiratory system: Good air entry bilaterally, no wheeze, no rhonchi, no cr ackles CVS: S1-S2 positive, no murmurs or gallops, bradycardia Abdomen: Soft, nontender, nondistended, positive bowel sounds x4 Extremities: +2 pulses bilaterally radialis/ dorsalis pedis, no edema, no cyanosis Neuro: Awake alert oriented x3 Psych: Normal mood and affect G/U: No [place] Skin: No rash appreciated Lymphatic: no cervical or axillary lymphadenopathy Results & Data Vital Signs (Past 12 Hours) Vital Signs Temp Pulse Resp BP Pulse Ox 12/10/18 13:01 43 L 17 139/76 99 12/10/18 13:00 43 L 15 99 12/10/18 12:50 43 L 17 99 12/10/18 12:41 36.6 C 46 L 18 163/93 H 100 12/10/18 12:40 45 L 22 12/10/18 12:38 45 L 18 164/103 H 12/10/18 12:48 12/10/18 12:48 Coding Level of Care Code Critical Care 1st 30-74 mins Diagnoses Third degree AV block I44.2 Hypertension I10 Dyslipidemia E78.5 History of aortic valve replacement with bioprosthetic valve Z95.3 Time Spent (min) 55
[2018-12-10] MEDS ORDERED: ICU PROTOCOL FOR HYPERGLYCEMIA PRN (14:55)
[2018-12-10] MEDS ORDERED: GLUCAGON 5 MG in DEXTROSE 5% 45 ML IV ONE (15:45)
--- NOTE | 2018-12-10 17:46 | Emergency Department Note ---
Entered by Kassidy Cardozo acting as a scribe for History of Present Illness General Chief complaint: Cardiac Assessment Time Seen by Provider: 12/10/18 12:31 Source: patient History of Present Illness Provider complaint: shortness of breath Onset (ago): week(s) 1 Location: chest Radiation: non-radiation Pain Consistency: + intermittent Exacerbated By: + movement Associated symptoms: + denies other symptoms The patient is a 73 y/o male with a past medical history of CLL, CAD, CABG, aortic valve replacement x2, who presents to the emergency department for evaluation of intermittent shortness of breath, worse with excretion that began a week ago. The patient states he has a bovine aortic replacement done in August in [place] by Dr. Saha. He notes that he also had some abdominal pain 4 days ago but that is resolved. He reports he takes aspirin but no other blood thinners. The patient denies any other symptoms. She denies any chest pain, nausea vomiting diarrhea urinary urgency or frequency. He denies any blood thi nners. In August he had his second aortic valve replacement which was bovine. Home Medications Home Medications Medication Instructions Recorded Confirmed Type PreserVision AREDS-2 1 tab PO BID 11/17/17 12/10/18 History amoxicillin 500 mg PO DIRECTED PRN 11/17/17 12/10/18 History aspirin 81 mg PO QAM 11/17/17 12/10/18 History losartan 50 mg PO QAM 11/17/17 12/10/18 History nitroglycerin [Nitrostat] 0.4 mg SUBLINGUAL DIRECTED PRN 11/17/17 12/10/18 History polyvinyl alcohol [Artificial 1 drp OPB BID 11/17/17 12/10/18 History Tears (polyvin alc)] rosuvastatin [Crestor] 20 mg PO QPM 11/17/17 12/10/18 History metoprolol succinate 25 mg PO DAILY 12/10/18 12/10/18 History Allergies Allergy/AdvReac Type Severity Reaction Status Date / Time crab Allergy Unknown SWELLING Verified 08/06/18 07:27 Iodinated Contrast Media Allergy Unknown CHEST Verified 08/06/18 07:27 DISCOMFORT shrimp Allergy Unknown SWELLING Verified 08/06/18 07:27 Lobster Allergy Unknown SWELLING Uncoded 08/06/18 07:27 Past Med/Surg History Medical History CAD (coronary artery disease) CABG X3 (2005)- JAIN-LAD, SVG-CX, SVG-DRCA Fatigue FELT 2/2 VALVULAR DISEASE PER PT Hx of chronic lymphocytic leukemia ASYMPTOMATIC; ONCOLOGY MONITORING WITH ROUTINE CBCD Hyperlipidemia Hypertension Valvular heart disease S/P BIOPROSTHETIC AVR 2/2 BICUSPID/AORTIC STENOSIS (2005) Surgical History History of heart valve replacement (Acute) redo sternotomy and redo AVR on 09/07/2018 History of cataract surgery Hx of artificial heart valve replacement S/P AVR + CABG X3 (2005) Family History Other No pertinent family history Social History Preferred Language: Slovak Communication Ability: Effective Beliefs That Will Affect Care: None marital status: Current Living Situation: Spouse current occupational status: retired current occupation: retired Feels Safe at Home: Yes Smoking Status: Never smoker Second Hand Exposure: No ; Hx Alcohol Use: Yes Alcohol type: wine Hx Substance Use: No Review of Systems See HPI for pertinent positives & negatives. and A total of 10 systems reviewed and were otherwise negative Physical Exam Vital Signs Vital Signs - 24 hr 12/10/18 12:38 12/10/18 12:40 12/10/18 12:41 Temperature 36.6 C Temperature Source Oral Sepsis Recent Fever Within 48 Hours No Sepsis New/Unexplained Change in Mental Status No Sepsis Action Taken by Nursing No Action Required Pulse Rate 45 L 45 L 46 L Pulse Rate from SpO2 Sensor Respiratory Rate 18 22 18 Blood Pressure 164/103 H 163/93 H Blood Pressure Mean 123 116 Pulse Oximetry 100 Oxygen Delivery Method Room Air 12/10/18 12:50 12/10/18 13:00 12/10/18 13:01 Temperature Temperature Source Sepsis Recent Fever Within 48 Hours Sepsis New/Unexplained Change in Mental Status Sepsis Action Taken by Nursing Pulse Rate 43 L 43 L 43 L Pulse Rate from SpO2 Sensor 43 L 43 L 43 L Respiratory Rate 17 15 17 Blood Pressure 139/76 Blood Pressure Mean 97 Pulse Oximetry 99 99 99 Oxygen Delivery Method GENERAL: Sitting up in bed, alert, well appearing, well nourished, no distress, non-toxic EYE EXAM: normal conjunctiva. OROPHARYNX: no exudate, no erythema, lips, buccal mucosa, and tongue normal and mucous membranes are moist NECK: supple, no nuchal rigidity, no adenopathy, non-tender LUNGS: Clear to auscultation. Normal chest wall mechanics HEART: S1 normal and S2 normal CHEST: Chest multiple old incision, midline and sub xiphoid ABDOMEN: abdomen soft, non-tender, normo-active bowel sounds, no masses, no rebound or guarding. BACK: Back is symmetrical on inspection and there is no deformity, no midline tenderness, no CVA tenderness. SKIN: no rashes and no bruising UPPER EXTREMITIES: upper extremities are grossly normal. LOWER EXTREMITIES: No pitting edema. NEURO EXAM: Normal sensorium, cranial nerves II-XII intact, normal speech, no weakness of arms, no weakness of legs. Course ED COURSE: Vital signs were reviewed and showed hypertensive and brachycardia The patients medical record was reviewed The above diagnostic studies were performed and reviewed. ED treatments and interventions as stated above. 1230: The patient was evaluated in room C09. A complete history and physical examination was performed. 1237: I spoke with Dr. Sharpe- [place]. He recommended bringing the patient in to an breeding manager and tentatively on the schedule for a pacemaker tomorrow. 1320: I spoke with Olga Lidia William for Dr. Casillas. They will evaluate for further management. 1325: Upon reevaluation, the patient was updated on the treatment and results. I discussed my findings with the patient and he understands and agrees with the treatment plan. Based on the patients age, coexisting illnesses, exam and lab findings the decision to treat as an inpatient was made. The patient remained stable while under my care. The patient will be evaluated for further management. Administered Medications Discontinued Medications Glucagon 5 mg/ Dextrose 50 mls @ 600 mls/hr IV NOW ONE; Protocol Stop: 12/10/18 15:49 Last Infusion: 12/10/18 16:08 Dose: 0 mls/hr Documented by: [id number] Admin: 12/10/18 15:45 Dose: 600 mls/hr Documented by: [id number] Medical Decision Making Differential Diagnosis Differential includes acute coronary syndrome, myocardial infarction, CVA, TIA, anemia, infection, pneumonia, UTI, pyelonephritis, poor nutrition, dehydration, electrolyte disturbance,hypoglycemia. Medical Records Attestation: I reviewed the patient's medical records. Home Medications Current Medication List: was personally reviewed by me Laboratory Data Attestation: I reviewed the patient's lab results. Result diagrams: 12/10/18 12:48 12/10/18 12:48 Lab Results 12/10/18 12/10/18 12/10/18 Range/Units 12:48 12:48 12:48 WBC 8.98 (4.8-10.8) K/uL RBC 5.12 (4.7-6.1) M/uL Hgb 15.3 (14.0-18.0) g/dL Hct 45.2 (42-52) % MCV 88.3 (80-100) fL MCH 29.9 (25-34) pg MCHC 33.8 (32-36) g/dL RDW Std Deviation 45.8 (36.4-46.3) fL RDW Coeff of Zoie 14.1 (11.5-14.5) % Plt Count 154 (130-400) K/uL MPV 10.1 (7.4-10.4) fL Immature Gran % (Auto) 0.1 % Neut % (Auto) 48.5 % Lymph % (Auto) 43.7 % [place] % (Auto) 6.7 % Eos % (Auto) 0.7 % Baso % (Auto) 0.3 % Immature Gran # (Auto) 0.01 (0.00-0.02) K/uL Neut # (Auto) 4.36 (1.4-6.5) K/uL Lymph # (Auto) 3.92 H (1.2-3.4) K/uL [place] # (Auto) 0.60 H (0.11-0.59) K/uL Eos # (Auto) 0.06 (0-0.5) K/uL Baso # (Auto) 0.03 (0-0.2) K/uL Sodium 139 (136-145) mmol/L Potassium 4.8 (3.5-5.1) mmol/L Chloride 107 (98-107) mmol/L Carbon Dioxide 26 (21-32) mmol/L Anion Gap 6.0 (3-11) BUN 21 H (7-18) mg/dl Creatinine 1.30 (0.6-1.4) mg/dl Est Cr Clr Drug Dosing 50.7 ml/min Est GFR ( Amer) 61.9 Est GFR (Non-Af Amer) 53.4 BUN/Creatinine Ratio 16.0 (10-20) Glucose 96 (70-99) mg/dl Calcium 9.0 (8.5-10.1) mg/dl Total Bilirubin 0.8 (0.2-1) mg/dl AST 47 H (15-37) U/L ALT 92 H (12-78) U/L Alkaline Phosphatase 105 (45-117) U/L Troponin I 0.018 (0-0.045) ng/ml Total Protein 6.8 (6.4-8.2) gm/dl Albumin 3.7 (3.4-5.0) gm/dl Globulin 3.1 (2.5-4.0) gm/dl Albumin/Globulin Ratio 1.2 (0.9-2) Lipase 157 (73-393) U/L Lyme Disease IgG Ab Negative (Negative) Lyme Disease IgM Ab Negative (Negative) Imaging Data Radiologist's Impression: Radiology results as stated below per my review and the radiologist's interpretation: XR chest 1V portable CLINICAL HISTORY: Chest Pain pain COMPARISON STUDY: 11/17/2017 FINDINGS: The lungs are clear. Prior median sternotomy. Diaphragms are smooth. IMPRESSION: No acute process. The above report was generated using voice recognition software. It may contain grammatical, syntax or spelling errors. Electronically signed by: Shimon Lopez M.D. 12/10/2018 1:17 PM Blood Pressure Blood Pressure Findings: Elevated blood pressure Blood Pressure Disposition: Referred to patients primary care provider [facility] Narrative Patient is a 73-year-old male with a past medical history of CABG and aortic valve replacement x2 the presents the ER via EMS. He was found to be in c omplete heart block. Heart rate was in the 40s. Systolic blood pressures were in the 160s. He notes that over the past week he has been short of breath and weak with exertion. IVs were established blood work was obtained and showed no significant leukocytosis or anemia. BMP along with bilirubin was unremarkable. Mild transaminitis. Troponin was detectable but not positive. Lipase was negative. Lyme was negative. EKG did show a third-degree heart block. Dr. Dell evaluate the patient at bedside. Discussed with the hospitalist. Per cardiology tentatively he is on schedule for tomorrow to have a pacemaker placed. Patient was updated bedside and admitted to the hospital for further work-up and monitoring for a likely pacer. Impression & Plan CHB (complete heart block), Bradycardia, Transaminitis Discharge Plan Visit Data *Final* Discharge Date/Time: 12/10/18 14:26 Chief Complaint: Cardiac Assessment ED Provider: Carlos Gutierrez Discharge Problem: CHB (complete heart block), Bradycardia, Transaminitis Patient Disposition: Admitted As Inpatient Discharge Instructions Interventions: ED Discharge Assessment Last Done: 12/10/18 14:26 The scribe's documentation has been prepared under my direction and personally reviewed by me in its entirety. I confirm that the note above accurately reflects all work, treatment, procedures, and medical decision making performed by me.
[2018-12-10] MEDS: ROSUVASTATIN CALCIUM 20 MG TAB PO SCH (21:00)
[2018-12-10] MEDS: ARTIFICIAL TEARS OPB SCH (21:00)
[2018-12-10] MEDS: CEROVITE ADV FORMULA TAB PO SCH (21:00)
[2018-12-11 04:24] LABS: Hematocrit (blood only) 46.4 % (42-52); Hemoglobin 15.8 g/dL (14.0-18.0); Mean Corpuscular Hgb Conc 34.1 g/dL (32-36); Mean Platelet Volume 10.1 fL (7.4-10.4); Platelet Count 159 K/uL (130-400); RDW Coefficient of Variation 14.1 % (11.5-14.5); RDW Standard Deviation 45.2 fL (36.4-46.3); Red Blood Count 5.27 M/uL (4.7-6.1); White Blood Count 8.42 K/uL (4.8-10.8)
[2018-12-11 04:46] LABS: INR 1.1 (0.9-1.1); Prothrombin Time 10.9 Seconds (9.0-12.0)
[2018-12-11 04:58] LABS: BUN Creatinine Ratio 15.1 (10-20); Calcium 8.7 mg/dl (8.5-10.1); Creatinine Clr Calc Pharmacy 46.7 ml/min; Est GFR (African American) 56.1; Est GFR (Non-African American) 48.4; Magnesium 2.1 mg/dl (1.8-2.4); Phosphorus 3.1 mg/dl (2.5-4.9); Potassium 4.6 mmol/L (3.5-5.1)
[2018-12-11] MEDS ORDERED: LIDOCAINE HCL 1% 20 ML VIAL ONE (07:22)
[2018-12-11] MEDS ORDERED: MIDAZOLAM HCL 5 MG/ML 1 ML VIAL ONE (07:23)
[2018-12-11] MEDS ORDERED: BACITRACIN INJ 50,000 UNIT VIAL ONE (07:23)
[2018-12-11] MEDS ORDERED: BACITRACIN OINT 0.9 GM PKT ONE (07:23)
[2018-12-11] MEDS ORDERED: fentaNYL citrate 100 MCG/2 ML VIAL ONE (07:23)
[2018-12-11] MEDS ORDERED: CEFAZOLIN 250 MG/ML 1 GM VIAL ONE (07:23)
--- NOTE | 2018-12-11 07:34 | Critical Care Progress Note ---
Date of Service December 11, 2018 Assessment & Plan (1) Admitted to intensive care unit: Reason critically ill: 73yo gentleman with complete heart block likely secondary to recent aortic valve replacement in August 2018 who is in the ICU for monitoring s/p pacemaker placement 12/11. NEURO: -[facility] ICU-negative -Has Toradol and Tylenol PRN for pain per cardiology CARDIOVASCULAR Complete Heart Block -EKG 12/10 with complete heart block and wide QRS, rate of 46, qtc of 453 -likely secondary to recent bioprosthetic aortic valve replacement -Lyme titers negative -s/p pacemaker placement 12/11 -Post op EKG with paced rhythm, rate of 60, qtc of 508 -continue low dose aspirin -continue statin for Hx of HLD RESPIRATORY -no concerns currently GI -diet ordered RENAL/LYTES -replace electrolytes as needed -slight bump in Cr overnight -will continue to monitor -no concerns currently HEME -no concerns currently ID -no concerns currently PIVs DVT proph: Heparin, SCDs Dispo: ICU for post procedural monitoring. Supervising Physician Co-Signing Physician Notes Dr Rios was the resident-physician during care of patient. I separately evaluated patient for velásquez portions of the history and the exam. I was present during the critical portion of medical decision making, and I discussed the case with the resident. I generally agree with the findings and plan except for any additions/exceptions noted. Patient seen and examined at bedside. No acute distress. No adverse events overnight. Patient had pacemaker placement today. Left anterior chest dressing in place. Complains of mild soreness. Denies any dizziness, no palpitations, no nausea vomiting. Tolerating diet. Walking around later on in the corridor. Patient is hemodynamically stable now to be transferred to telemetry floor. I have personally spent 35 minutes of critical care time in the direct management of this patient. This is a life/limb threatening event. This includes time spent evaluating patient, direct bedside care, chart review, placing orders, interpretation of diagnostic studies, discussion with consultants, patient, and/or family members regarding treatment decisions, as well as other required patient management activities. This time is exclusive of all separately billable procedures, and teaching time and separate from and in addition to any other critical care service time. Subjective Pt seen post-op this AM after pacemaker placement. States he's doing well. Denies pain anywhere, states he has not had a BM yet since being hospitalized. Denies KAUR, blurry vision, cough, runny nose, sore throat, chest pain, SOB, palpitations, N/V, diarrhea, swollen hands or feet, or numbness or tingling anywhere. Review of Systems Review of Systems: All systems reviewed & are unremarkable except as noted in HPI & below Physical Exam Physical Exam: General: Alert, orientedx4. No acute distress, sitting up in bed. Skin: No noted rashes or bruises. Bandage over left chest without visible bleeding. Psych: Euthymic mood and affect Neuro: No gross deficits HEENT: NC/AT, PERRLA, EOMI, oropharynx moist. Chest: Nontender to palpation. Bandage on the left chest. CV: RRR, Normal s1, s2. No murmurs appreciated Resp: Breath sounds clear bilaterally, no increased effort of breathing. No crackles/rhonchi/rales. Abdomen: Soft, nontender, nondistended. No guarding. No organomegaly appreciated. Extremities: No edema in lower extremities bilaterally. Lymphatic: no cervical or axillary lymphadenopathy Results & Data Vital Signs (Past 12 Hours) Vital Signs Temp Pulse Resp BP Pulse Ox 12/11/18 07:00 41 L 10 L 125/57 L 95 12/11/18 06:30 40 L 12 95 12/11/18 06:00 40 L 20 101/60 92 12/11/18 05:30 40 L 15 94 12/11/18 05:00 40 L 18 122/69 93 12/11/18 04:30 39 L 17 93 12/11/18 04:00 36.5 C 40 L 18 99/53 L 93 12/11/18 03:30 39 L 16 95 12/11/18 03:02 40 L 15 123/41 L 96 12/11/18 03:00 41 L 20 95 12/11/18 02:30 39 L 15 95 12/11/18 02:00 38 L 17 111/63 94 12/11/18 01:30 39 L 18 93 12/11/18 01:01 39 L 19 138/66 94 12/11/18 01:00 39 L 18 95 12/11/18 00:30 39 L 17 97 12/11/18 00:00 36.6 C 40 L 19 147/71 H 93 12/10/18 23:30 39 L 18 95 12/10/18 23:01 40 L 22 131/72 94 12/10/18 23:00 40 L 13 94 12/10/18 22:30 41 L 14 94 12/10/18 22:01 47 L 22 148/69 H 95 12/10/18 22:00 41 L 21 95 12/10/18 21:00 42 L 10 L 136/72 96 12/10/18 20:00 36.6 C 44 L 20 158/77 H 95 Laboratory Results Laboratory Results - last 24 hr 12/10/18 12/10/18 12/10/18 12:48 12:48 12:48 WBC 8.98 RBC 5.12 Hgb 15.3 Hct 45.2 MCV 88.3 MCH 29.9 MCHC 33.8 RDW Std Deviation 45.8 RDW Coeff of Zoie 14.1 Plt Count 154 MPV 10.1 Immature Gran % (Auto) 0.1 Neut % (Auto) 48.5 Lymph % (Auto) 43.7 [place] % (Auto) 6.7 Eos % (Auto) 0.7 Baso % (Auto) 0.3 Immature Gran # (Auto) 0.01 Neut # (Auto) 4.36 Lymph # (Auto) 3.92 H [place] # (Auto) 0.60 H Eos # (Auto) 0.06 Baso # (Auto) 0.03 PT INR Sodium 139 Potassium 4.8 Chloride 107 Carbon Dioxide 26 Anion Gap 6.0 BUN 21 H Creatinine 1.30 Est Cr Clr Drug Dosing 50.7 Est GFR ( Amer) 61.9 Est GFR (Non-Af Amer) 53.4 BUN/Creatinine Ratio 16.0 Glucose 96 Calcium 9.0 Phosphorus Magnesium Total Bilirubin 0.8 AST 47 H ALT 92 H Alkaline Phosphatase 105 Troponin I 0.018 Total Protein 6.8 Albumin 3.7 Globulin 3.1 Albumin/Globulin Ratio 1.2 Lipase 157 Nasal Screen MRSA (PCR) Lyme Disease IgG Ab Negative Lyme Disease IgM Ab Negative 12/10/18 12/11/18 12/11/18 15:12 04:07 04:07 WBC 8.42 RBC 5.27 Hgb 15.8 Hct 46.4 MCV 88.0 MCH 30.0 MCHC 34.1 RDW Std Deviation 45.2 RDW Coeff of Zoie 14.1 Plt Count 159 MPV 10.1 Immature Gran % (Auto) Neut % (Auto) Lymph % (Auto) [place] % (Auto) Eos % (Auto) Baso % (Auto) Immature Gran # (Auto) Neut # (Auto) Lymph # (Auto) [place] # (Auto) Eos # (Auto) Baso # (Auto) PT INR Sodium 140 Potassium 4.6 Chloride 107 Carbon Dioxide 27 Anion Gap 6.0 BUN 21 H Creatinine 1.41 H Est Cr Clr Drug Dosing 46.7 Est GFR ( Amer) 56.1 Est GFR (Non-Af Amer) 48.4 BUN/Creatinine Ratio 15.1 Glucose 86 Calcium 8.7 Phosphorus 3.1 Magnesium 2.1 Total Bilirubin AST ALT Alkaline Phosphatase Troponin I Total Protein Albumin Globulin Albumin/Globulin Ratio Lipase Nasal Screen MRSA (PCR) Negative Lyme Disease IgG Ab Lyme Disease IgM Ab 12/11/18 04:07 WBC RBC Hgb Hct MCV MCH MCHC RDW Std Deviation RDW Coeff of Zoie Plt Count MPV Immature Gran % (Auto) Neut % (Auto) Lymph % (Auto) [place] % (Auto) Eos % (Auto) Baso % (Auto) Immature Gran # (Auto) Neut # (Auto) Lymph # (Auto) [place] # (Auto) Eos # (Auto) Baso # (Auto) PT 10.9 INR 1.1 Sodium Potassium Chloride Carbon Dioxide Anion Gap BUN Creatinine Est Cr Clr Drug Dosing Est GFR ( Amer) Est GFR (Non-Af Amer) BUN/Creatinine Ratio Glucose Calcium Phosphorus Magnesium Total Bilirubin AST ALT Alkaline Phosphatase Troponin I Total Protein Albumin Globulin Albumin/Globulin Ratio Lipase Nasal Screen MRSA (PCR) Lyme Disease IgG Ab Lyme Disease IgM Ab Medications Administered Home Medications PreserVision AREDS-2 1 tab PO BID 11/17/17 [History Confirmed 12/10/18] amoxicillin 500 mg PO DIRECTED PRN 11/17/17 [History Confirmed 12/10/18] aspirin 81 mg PO QAM 11/17/17 [History Confirmed 12/10/18] losartan 50 mg PO QAM 11/17/17 [History Confirmed 12/10/18] nitroglycerin [Nitrostat] 0.4 mg SUBLINGUAL DIRECTED PRN 11/17/17 [History Confirmed 12/10/18] polyvinyl alcohol [Artificial Tears (polyvin alc)] 1 drp OPB BID 11/17/17 [History Confirmed 12/10/18] rosuvastatin [Crestor] 20 mg PO QPM 11/17/17 [History Confirmed 12/10/18] metoprolol succinate 25 mg PO DAILY 12/10/18 [History Confirmed 12/10/18] Active Medications Acetaminophen (Tylenol) 650 mg PO Q4H PRN PRN Reason: Mild pain (rating 1,2,3) Stop: 01/10/19 09:34 Artificial Tears (Artificial Tears) 1 drops OPB BID [facility] Stop: 01/09/19 20:59 Last Admin: 12/11/18 10:16 Dose: 1 drops Documented by: Aspirin (Ecotrin Ectab) 81 mg PO QAM [facility] Stop: 01/10/19 08:59 Last Admin: 12/11/18 10:13 Dose: 81 mg Documented by: Heparin Sodium (Porcine) (Heparin Sodium (Porcine)) 5,000 units SQ Q12 [facility] Stop: 01/10/19 20:59 Ketorolac Tromethamine (Toradol) 10 mg PO Q6H PRN PRN Reason: Pain (rating 4,5,6,7,8,9,10) Stop: 12/16/18 09:34 Miscellaneous (Icu Protocol For Hyperglycemia) 1 ea N/A PRN PRN; Protocol PRN Reason: Hyperglycemia Protocol Stop: 12/12/18 14:54 Multivitamins/Minerals (Multivitamin W/ Minerals Tab) 1 tab PO BID [facility] Stop: 01/09/19 20:59 Last Admin: 12/11/18 10:13 Dose: 1 tab Documented by: Rosuvastatin Calcium (Crestor) 20 mg PO QPM [facility] Stop: 01/09/19 20:59 Last Admin: 12/10/18 21:00 Dose: Not Given Documented by: Coding Level of Care Code Critical Care 1st 30-74 mins Diagnoses Admitted to intensive care unit Z78.9 Resident Activity Tracking Resident Involvement: Resident Care Provided Care Provided: Adult Hospital Medicine
--- NOTE | 2018-12-11 08:04 | Cardiology Consultation ---
Date of Consultation December 11, 2018 Assessment & Plan (1) Third degree AV block: He presents in complete heart block with an escape rhythm of around 40 bpm, probably fascicular based on the morphology. His main symptom is fatigue. He has had no syncope and he has no heart failure symptoms. This is most likely due to His bundle damage following valve surgery and he needs a pacemaker. I discussed the indications, procedure, risks and alternatives with him and he understands and agrees to proceed. Consent obtained. I also discussed sedation and he is agreeable. Consent obtained. (2) History of aortic valve replacement with bioprosthetic valve: He had a recent valve replacement, it is not uncommon for heart block to occur following aortic valve replacement. This is unlikely to correct and there seems to be no reversible cause. His valve appears to be functioning normally and there is no indication that there is an infection. (3) CAD (coronary artery disease): He has coronary artery disease, he did not have significant progression at the time of his valve replacement and has no symptoms to suggest progression now. This would not explain his presentation. History of Present Illness Reason for Consultation: Complete heart block Attending Physician: Alice Torres MD History of Present Illness This is a very active 73-year-old gentleman who has a history of hypertension, hyperlipidemia, coronary artery disease and valve replacement with bypass surgery in 2005 as well as replacement bioprosthetic valve replacement in August 2018. He presented to [facility] cardiology clinic with symptoms of fatigue without presyncope or syncope and was noted to be in complete heart block with a heart rate in the low 40s. He was sent to the hospital, evaluation there included echocardiography where his ejection fraction is 45 to 50%, the valve is functioning well and no other abnormalities were identified. His outpatient medications include metoprolol succinate 25 mg daily which he took on December 10, 2018. He is also on losartan but no other AV codie blocking medications. He has remained in complete heart block overnight with an escape rhythm which is probably fascicular. He is feeling the same this morning, he has had no heart failure symptoms and his rhythm remains stable overnight with no evidence of AV conduction. He is having no chest discomfort and has not had any this presentation. Lyme titer is negative. Allergies Allergy/AdvReac Type Severity Reaction Status Date / Time crab Allergy Unknown SWELLING Verified 08/06/18 07:27 Iodinated Contrast Media Allergy Unknown CHEST Verified 08/06/18 07:27 DISCOMFORT shrimp Allergy Unknown SWELLING Verified 08/06/18 07:27 Lobster Allergy Unknown SWELLING Uncoded 08/06/18 07:27 Home Medications Home Medications Medication Instructions Recorded Confirmed Type PreserVision AREDS-2 1 tab PO BID 11/17/17 12/10/18 History amoxicillin 500 mg PO DIRECTED PRN 11/17/17 12/10/18 History aspirin 81 mg PO QAM 11/17/17 12/10/18 History losartan 50 mg PO QAM 11/17/17 12/10/18 History nitroglycerin [Nitrostat] 0.4 mg SUBLINGUAL DIRECTED PRN 11/17/17 12/10/18 History polyvinyl alcohol [Artificial 1 drp OPB BID 11/17/17 12/10/18 History Tears (polyvin alc)] rosuvastatin [Crestor] 20 mg PO QPM 11/17/17 12/10/18 History metoprolol succinate 25 mg PO DAILY 12/10/18 12/10/18 History Patient History Medical History CAD (coronary artery disease) (Chronic) CABG X3 (2005)- JAIN-LAD, SVG-CX, SVG-DRCA Hx of chronic lymphocytic leukemia (Chronic) ASYMPTOMATIC; ONCOLOGY MONITORING WITH ROUTINE CBCD Hyperlipidemia (Chronic) Hypertension (Chronic) Valvular heart disease (Chronic) S/P BIOPROSTHETIC AVR 2/2 BICUSPID/AORTIC STENOSIS (2005) Surgical History Hx of cholecystectomy (Chronic) History of cataract surgery (Chronic) Hx of artificial heart valve replacement (Chronic) S/P AVR + CABG X3 (2005) History of heart valve replacement (Resolved) redo sternotomy and redo AVR on 09/07/2018 Family History Other Lung disease Social History Preferred Language: Telugu Communication Ability: Effective Beliefs That Will Affect Care: None marital status: Current Living Situation: Spouse current occupational status: retired current occupation: retired Feels Safe at Home: Yes Smoking Status: Never smoker Second Hand Exposure: No ; Hx Alcohol Use: Yes Alcohol type: wine Hx Substance Use: No Review of Systems Review of Systems: All systems reviewed & are unremarkable except as noted in HPI & below Physical Exam Physical Exam: Constitutional: Alert, cooperative and in no distress. HEENT: Unremarkable Neck: No jugular venous distention, carotid pulses are normal and equal bilaterally without bruits. Pulmonary: Clear to auscultation bilaterally. Cardiac: Regular slow rhythm with good prosthetic valve sounds and a soft sys tolic murmur, no gallop or rub. Abdomen: Soft, nontender with normal bowel sounds. Extremities: No edema. Distal pulses intact. Neurologic: No focal findings. Gait is steady. Skin: No rash, ecchymoses or petechiae. Results & Data Vital Signs (Past 12 Hours) Vital Signs Temp Pulse Resp BP Pulse Ox 12/11/18 07:00 41 L 10 L 125/57 L 95 12/11/18 06:30 40 L 12 95 12/11/18 06:00 40 L 20 101/60 92 12/11/18 05:30 40 L 15 94 12/11/18 05:00 40 L 18 122/69 93 12/11/18 04:30 39 L 17 93 12/11/18 04:00 36.5 C 40 L 18 99/53 L 93 12/11/18 03:30 39 L 16 95 12/11/18 03:02 40 L 15 123/41 L 96 12/11/18 03:00 41 L 20 95 12/11/18 02:30 39 L 15 95 12/11/18 02:00 38 L 17 111/63 94 12/11/18 01:30 39 L 18 93 12/11/18 01:01 39 L 19 138/66 94 12/11/18 01:00 39 L 18 95 12/11/18 00:30 39 L 17 97 12/11/18 00:00 36.6 C 40 L 19 147/71 H 93 12/10/18 23:30 39 L 18 95 12/10/18 23:01 40 L 22 131/72 94 12/10/18 23:00 40 L 13 94 12/10/18 22:30 41 L 14 94 12/10/18 22:01 47 L 22 148/69 H 95 12/10/18 22:00 41 L 21 95 12/10/18 21:00 42 L 10 L 136/72 96 Diagnostic Findings Electrocardiogram: Sinus rhythm with complete heart block and a probable fascicular escape rhythm in the low 40s. Telemetry: Complete heart block with an escape rhythm and a heart rate in the 40s, no evidence of AV conduction. PG Care Time/CCT Total # of Minutes Spent Total Time Spent with Patient: Total time spent is greater than 50% in coordination of care (as documented) at patient's floor/unit and/or counseling patient:
--- NOTE | 2018-12-11 08:06 | Pre Anesthesia Assessment ---
Date of Service December 11, 2018 Pre Sedation Assessment Vital Signs Temp Pulse Pulse Resp BP BP Pulse Ox 12/11/18 07:00 41 L 10 L 125/57 L 95 12/11/18 06:30 40 L 12 95 12/11/18 06:00 40 L 20 101/60 92 12/11/18 05:30 40 L 15 94 12/11/18 05:00 40 L 18 122/69 93 12/11/18 04:30 39 L 17 93 12/11/18 04:00 36.5 C 40 L 18 99/53 L 93 12/11/18 03:30 39 L 16 95 12/11/18 03:02 40 L 15 123/41 L 96 12/11/18 03:00 41 L 20 95 12/11/18 02:30 39 L 15 95 12/11/18 02:00 38 L 17 111/63 94 12/11/18 01:30 39 L 18 93 12/11/18 01:01 39 L 19 138/66 94 12/11/18 01:00 39 L 18 95 12/11/18 00:30 39 L 17 97 12/11/18 00:00 36.6 C 40 L 19 147/71 H 93 12/10/18 23:30 39 L 18 95 12/10/18 23:01 40 L 22 131/72 94 12/10/18 23:00 40 L 13 94 12/10/18 22:30 41 L 14 94 12/10/18 22:01 47 L 22 148/69 H 95 12/10/18 22:00 41 L 21 95 12/10/18 21:00 42 L 10 L 136/72 96 12/10/18 20:00 36.6 C 44 L 20 158/77 H 95 12/10/18 19:00 44 L 22 133/81 95 12/10/18 18:45 45 L 27 H 94 12/10/18 17:00 45 L 17 129/65 95 12/10/18 16:22 42 L 18 147/75 H 97 12/10/18 16:16 46 L 19 158/74 H 97 12/10/18 16:02 48 L 17 182/85 H 98 12/10/18 15:57 43 L 16 154/78 H 96 12/10/18 15:18 36.5 C 43 L 18 163/84 H 99 12/10/18 15:01 43 L 14 163/84 H 98 12/10/18 14:54 43 L 12 159/72 H 96 12/10/18 14:25 45 L 18 145/64 H 100 12/10/18 13:01 43 L 17 139/76 99 12/10/18 13:00 43 L 15 99 12/10/18 12:50 43 L 17 99 12/10/18 12:41 36.6 C 46 L 18 163/93 H 100 12/10/18 12:40 45 L 22 12/10/18 12:38 45 L 18 164/103 H Cardiovascular + regular rhythm and + bradycardic Respiratory normal respiratory effort, lungs clear to auscultation Pre-Sedation Airway Assessment Smoking Status: Never smoker Hx Sleep Apnea: No Hx Difficult Intubation: No Short, Thick Neck: No Thyromental Distance: > or= 3.5 Finger Breadths Mallampati Class: II ASA: ASA3 NPO Status Date of Last Intake of Fluids: 12/10/18 Date of Last Intake of Solid Food: 12/10/18 Procedure Planning Contraindications for Sedation: none Current Medications Reviewed: Yes Notes The planned sedation has been discussed with the patient. Informed Consent was obtained. I have identified the patient, determined the appropriateness of sedation and have assessed the patient immediately prior to the procedure. All medicine(s) and interventions are by my order.
--- NOTE | 2018-12-11 09:34 | Operative Report ---
PG Post Operative Report Pre & Post Diagnosis Operation Date: 12/11/18 08:00 Preoperative diagnosis: Complete heart block Postoperative diagnosis: Same I identified the patient and participated in the time-out.: Yes Procedure Operation Date: 12/11/18 08:00 Left subclavian venogram Dual-chamber pacemaker implantation Surgeon Asif Mancera MD Agency Operator None Estimated Blood Loss 20 Findings Consistent with Post-Op Diagnosis Left subclavian free of obstruction Excellent position and lead characteristics Specimens None Anesthesia Type Local Complications none Disposition Accompanied Patient To Recovery: No Disposition: Surgical ICU Description of Procedure After obtaining informed consent for the procedure, the patient was brought to the laboratory and prepped and draped in the standard sterile manner. The left prepectoral region was anesthetized with 1% lidocaine local anesthetic and dye was injected the left arm IV site to opacify the left subclavian vein. The subclavian vein was identified and found to be free of obstruction. Left axillary venipuncture was performed by percutaneous technique and a guidewire placed through the left subclavian vein into the superior vena cava. The area was further infiltrated with 1% lidocaine local anesthetic and a 5 cm incision was made parallel to the left clavicle and 2 cm below it and carried down to the anterior pectoralis fascia. A pacemaker pocket was formed by blunt dissection anterior to the pectoralis fascia and a bacitracin-soaked sponge (50,000 units in 50 cc normal saline solution) was placed in the pocket. An 8 [place] Medtronic lead introducer was placed over the guidewire into the left subclavian vein, the dilator and guidewire were removed and a bipolar active fixation steroid tipped ventricular lead was advanced through the introducer into the superior vena cava. A guidewire was placed through the introducer and the introducer was stripped from the lead and guidewire. Another 8 [place] Medtronic lead introducer was placed over the guidewire into the left subclavian vein, the dilator and guidewire were removed and a bipolar active fixation steroid tipped atrial lead was advanced through the introducer into the superior vena cava. A guidewire was placed back through the introducer and the introducer was stripped from the lead and guidewire. Using a curved stylette the ventricular lead was advanced through the right ventricular outflow tract into the pulmonary artery and then using a straight stylette was positioned in the right ventricular apex. The screw was extended fixing the lead in position. Pacing and sensing thresholds were evaluated in bipolar configuration and are recorded on the implant data sheet. Using a curved stylette the atrial lead was positioned in the region of the atrial appendage and the screw extended fixing the lead in position. Pacing and sensing thresholds were evaluated in bipolar configuration and are recorded on the implant data sheet. Once the leads were in position they were attached to the anterior pectoralis fascia using 2 sutures of 2-0 silk around each lead collar. The bacitracin- soaked sponge was removed from the pocket, hemostasis was obtained, the pacemaker was attached to the leads and placed in the pocket with the leads coiled beneath it. The incision was closed with a running double subcutaneous closure of 3-0 Vicryl absorbable suture, followed by running subcuticular skin closure of 4-0 Vicryl absorbable suture. Bacitracin ointment was placed on the incision and a pressure dressing applied. I attest to the content of the Intraoperative Record and any orders documented therein. Any exceptions are noted below.
[2018-12-11] MEDS ORDERED: KETOROLAC TROMETHAMINE 10 MG TABLET PO PRN (09:35)
[2018-12-11] MEDS: ASPIRIN 81 MG ECTAB PO SCH (10:13)
[2018-12-11] MEDS: CEROVITE ADV FORMULA TAB PO SCH ×2 (10:13→19:53)
[2018-12-11] MEDS: ARTIFICIAL TEARS OPB SCH ×2 (10:16→20:30)
--- NOTE | 2018-12-11 12:36 | Cardiology Progress Note ---
Date of Service December 11, 2018 Assessment & Plan (1) Third degree AV block: Patient presented with one week of exertional shortness of breath, easy fatigability, and dizziness. Remained in 3rd degree AVB overnight. No post pacemaker. EP input appreciated. Remain off metoprolol for now. Stable for transfer from ICU to PCU pending bed availability. CXR and interrogation planned for tomorrow am. Subjective CC: follow up shortness of breath with exertion Subjective: Pt seen in room 111 post implantation of dual chamber pacemaker. Feels well. Pain well controlled. Review of Systems Review of Systems: All systems reviewed & are unremarkable except as noted in HPI & below Physical Exam Physical Exam: Temp Pulse Resp BP Pulse Ox 36.5 C 66 24 113/54 L 96 12/11/18 04:00 12/11/18 11:15 12/11/18 11:15 12/11/18 11:00 12/11/18 11:15 Constitutional: WD/WN, vitals as above Respiratory: normal respiratory effort, lungs clear to auscultation Cardiovascular: RRR, no murmur, no edema Chest (Breasts): Chest: + pacemaker (dresseing in place, left subclavian position ) Gastrointestinal (Abdomen): normal bowel sounds, soft, nontender, no hepatosplenomegaly Neurologic: PERRL, EOMI, accommodation nl, no face palsy, no dysarthria Results & Data Vital Signs (Past 12 Hours) Vital Signs Temp Pulse Resp BP Pulse Ox 12/11/18 11:15 66 24 96 12/11/18 11:00 66 20 113/54 L 94 12/11/18 10:32 68 22 104/86 95 12/11/18 10:00 60 25 H 131/77 95 12/11/18 09:52 61 21 124/76 92 12/11/18 07:30 43 L 14 96 12/11/18 07:00 41 L 10 L 125/57 L 95 12/11/18 06:30 40 L 12 95 12/11/18 06:00 40 L 20 101/60 92 12/11/18 05:30 40 L 15 94 12/11/18 05:00 40 L 18 122/69 93 12/11/18 04:30 39 L 17 93 12/11/18 04:00 36.5 C 40 L 18 99/53 L 93 12/11/18 03:30 39 L 16 95 12/11/18 03:02 40 L 15 123/41 L 96 12/11/18 03:00 41 L 20 95 12/11/18 02:30 39 L 15 95 12/11/18 02:00 38 L 17 111/63 94 12/11/18 01:30 39 L 18 93 12/11/18 01:01 39 L 19 138/66 94 12/11/18 01:00 39 L 18 95 Laboratory Results Cardiac Enzymes 12/10/18 Range/Units 12:48 AST 47 H (15-37) U/L Troponin I 0.018 (0-0.045) ng/ml Coagulation 12/11/18 Range/Units 04:07 PT 10.9 (9.0-12.0) Seconds CBC 12/10/18 12/11/18 Range/Units 12:48 04:07 WBC 8.98 8.42 (4.8-10.8) K/uL RBC 5.12 5.27 (4.7-6.1) M/uL Hgb 15.3 15.8 (14.0-18.0) g/dL Hct 45.2 46.4 (42-52) % Plt Count 154 159 (130-400) K/uL Neut # (Auto) 4.36 (1.4-6.5) K/uL Lymph # (Auto) 3.92 H (1.2-3.4) K/uL [place] # (Auto) 0.60 H (0.11-0.59) K/uL Eos # (Auto) 0.06 (0-0.5) K/uL Baso # (Auto) 0.03 (0-0.2) K/uL Comprehensive Metabolic Panel 12/10/18 12/11/18 Range/Units 12:48 04:07 Sodium 139 140 (136-145) mmol/L Potassium 4.8 4.6 (3.5-5.1) mmol/L Chloride 107 107 (98-107) mmol/L Carbon Dioxide 26 27 (21-32) mmol/L BUN 21 H 21 H (7-18) mg/dl Creatinine 1.30 1.41 H (0.6-1.4) mg/dl Glucose 96 86 (70-99) mg/dl Calcium 9.0 8.7 (8.5-10.1) mg/dl AST 47 H (15-37) U/L ALT 92 H (12-78) U/L Alkaline Phosphatase 105 (45-117) U/L Total Protein 6.8 (6.4-8.2) gm/dl Albumin 3.7 (3.4-5.0) gm/dl Intake and Output 12/10/18 12/11/18 12/11/18 22:59 06:59 14:59 Intake Total 540 / 540 200 / 200 Output Total 1000 / 1375 375 / 1375 Balance -460 / -835 -375 / -835 200 / 200 Intake: IV 50 / 50 Glucagen 5 mg In D5w 45 ml @ 50 / 50 600 mls/hr IV NOW ONE Rx#: [id number] Oral 490 / 490 200 / 200 Output: Urine 1000 / 1375 375 / 1375 Other: Weight 80 kg 80 kg
--- NOTE | 2018-12-11 13:32 | Hospitalist Progress Note ---
Date of Service December 11, 2018 Assessment & Plan (1) Third degree AV block: Patient was seen in cardiology clinic yesterday by Shimon Carlos PA-C and was found to have bradycardia with third-degree AV block with ventricular escape rhythm in the 40 to 45 bpm range at rest and sent to ER. He was admitted to ICU and evaluated by cardiology Negative lyme testing He got Pacemaker placement this morning Patient is currently hemodynamically stable Specialty Trimmer on board Will get CXR tomorrow Advised patient to follow up with Cardiology office on discharge prior to his planned 6 month trip 2D echo with LVEF 45-50% , unchanged compared to 09/2018 Continue to hold patient's home dose of metoprolol (2) Dyslipidemia: Continue statin (3) History of aortic valve replacement with bioprosthetic valve[place] [facility] [place] AV replacement performed in [place] (4) CLL (chronic lymphocytic leukemia): Follows with heme onc. Asymptomatic from his CLL and lymphocytosis is mild Next heme onc appt in April 2019 Code status: FULL PCP: Nikolas Dispo: Will transfer to PCU with telemetry Subjective Patient seen and evaluated. Patient was walking around prior to evaluation. He had pacemaker placement this morning. He reports no chest pain or pain at site of pacemaker, shortness of breath Reports good exercise tolerance Review of Systems Review of Systems: All systems reviewed and unremarkable except for mentioned above. Physical Exam Constitutional: WD/WN, vitals as above Eyes: PERRL, conjunctivae normal, anicteric sclerae ENMT: external ear and nose normal, oropharynx normal Neck: trachea midline, no thyromegaly normal visual inspection Respiratory: normal respiratory effort, lungs clear to auscultation Cardiovascular: RRR, no murmur, no edema Heart Sounds: normal S1 and normal S2 Chest (Breasts): Additional Comments: clean dressing over left chest wall Gastrointestinal (Abdomen): normal bowel sounds, soft, nontender, no hepatosplenomegaly Musculoskeletal: no cyanosis or clubbing, extremities motor strength 5/5 Neurologic: patellar DTR's 2+ bilat, sensation intact Psychiatric: A+Ox3, euthymic affect Results & Data Vital Signs (Past 12 Hours) Vital Signs Temp Pulse Resp BP Pulse Ox 12/11/18 12:01 66 16 102/65 94 12/11/18 11:15 66 24 96 12/11/18 11:00 66 20 113/54 L 94 12/11/18 10:32 68 22 104/86 95 12/11/18 10:00 60 25 H 131/77 95 12/11/18 09:52 61 21 124/76 92 12/11/18 07:30 43 L 14 96 12/11/18 07:00 41 L 10 L 125/57 L 95 12/11/18 06:30 40 L 12 95 12/11/18 06:00 40 L 20 101/60 92 12/11/18 05:30 40 L 15 94 12/11/18 05:00 40 L 18 122/69 93 12/11/18 04:30 39 L 17 93 12/11/18 04:00 36.5 C 40 L 18 99/53 L 93 12/11/18 03:30 39 L 16 95 12/11/18 03:02 40 L 15 123/41 L 96 12/11/18 03:00 41 L 20 95 12/11/18 02:30 39 L 15 95 12/11/18 02:00 38 L 17 111/63 94 12/11/18 01:30 39 L 18 93 Laboratory Results Short CBC 12/11/18 Range/Units 04:07 WBC 8.42 (4.8-10.8) K/uL Hgb 15.8 (14.0-18.0) g/dL Hct 46.4 (42-52) % Plt Count 159 (130-400) K/uL BMP 12/11/18 04:07 Sodium 140 Potassium 4.6 Chloride 107 Carbon Dioxide 27 BUN 21 H Creatinine 1.41 H Glucose 86 Calcium 8.7
[2018-12-11] MEDS: ACETAMINOPHEN 325 MG TAB PO PRN (19:52)
[2018-12-11] MEDS: ROSUVASTATIN CALCIUM 20 MG TAB PO SCH (19:53)
[2018-12-11] MEDS: HEPARIN SOD 5,000 UNIT/0.5 ML VIAL SQ SCH (19:54)
[2018-12-12] MEDS: ACETAMINOPHEN 325 MG TAB PO PRN (06:11)
[2018-12-12 06:41] LABS: Hematocrit (blood only) 46.4 % (42-52); Hemoglobin 15.9 g/dL (14.0-18.0); Mean Corpuscular Hemoglobin 29.7 pg (25-34); Mean Corpuscular Hgb Conc 34.3 g/dL (32-36); Mean Corpuscular Volume 86.7 fL (80-100); Mean Platelet Volume 9.9 fL (7.4-10.4); Platelet Count 138 K/uL (130-400); RDW Coefficient of Variation 13.9 % (11.5-14.5); RDW Standard Deviation 43.9 fL (36.4-46.3); Red Blood Count 5.35 M/uL (4.7-6.1)
[2018-12-12 07:11] LABS: BUN Creatinine Ratio 19.1 (10-20); Calcium 8.8 mg/dl (8.5-10.1); Creatinine Clr Calc Pharmacy 48.5 ml/min; Est GFR (African American) 58.6; Est GFR (Non-African American) 50.5; Potassium 4.3 mmol/L (3.5-5.1)
--- NOTE | 2018-12-12 08:01 | Post Anesthesia Assessment ---
Date of Service December 12, 2018 Post Sedation Assessment Vital Signs Temp Pulse Pulse Resp BP BP BP 12/12/18 07:55 36.6 C 74 20 129/80 12/12/18 03:16 36.4 C L 61 18 134/73 12/12/18 00:04 37.1 C 64 18 118/72 12/11/18 19:31 37.0 C 70 22 123/84 12/11/18 14:05 63 19 127/83 12/11/18 13:00 65 17 122/84 12/11/18 12:21 36.7 C 12/11/18 12:01 66 16 102/65 12/11/18 11:15 66 24 12/11/18 11:00 66 20 113/54 L 12/11/18 10:32 68 22 104/86 12/11/18 10:00 60 25 H 131/77 12/11/18 09:52 61 21 124/76 Pulse Ox 12/12/18 07:55 97 12/12/18 03:16 94 12/12/18 00:04 95 12/11/18 19:31 97 12/11/18 14:05 94 12/11/18 13:00 97 12/11/18 12:21 12/11/18 12:01 94 12/11/18 11:15 96 12/11/18 11:00 94 12/11/18 10:32 95 12/11/18 10:00 95 12/11/18 09:52 92 Recovery Score Activity: Moves 4 extremities Respiration: Deep Breath/Cough Circulation: +/-20% PreAnes Value Consciousness: Fully Awake Oxygen Saturation: > 92% On Room Air Discharge Sedation Level of Care: Fast Track Phase II Post Sedation Plan On clinical assessment, the patient appears to have tolerated the sedation without complications. Patient is recovering as anticipated. Patient will continue to be monitored by nursing and may be discharged when sedation discharge criteria are met per below protocol. Upon Completions of procedure and additional 15 minutes continue every 5 minute vital signs and the P.A.R. score; then discharge to a Phase I or Fast Track to Phase II per the following guidelines: * Discharge Patient to appropriate Phase II area if PAR is 8 or greater or return to pre- procedure baseline. The post - procedure orders will be as directed. * If PAR score is less than 8 or not return to pre-procedure baseline then patient will follow Phase I monitoring till PAR is reached for Phase II. The Phase I may be done in procedure room or may call to secure a Phase I area. * If naloxone or flumazenil are used for reversal, hold in Phase I for continued monitoring from when last reversal dose was given for a minimum of 60 minutes or longer pending the nurse and/or physician discretion of patient condition before discharge to Phase II. Please call the Sedation Physician to re-evaluate and complete post-note for discharge to Phase II area. Do NOT discharge from procedure sedation or Phase 1 until post- sedation evaluation note is complete by procedure /sedation MD Sedation Discharge Instructions to be given to the patient at discharge to home.
--- NOTE | 2018-12-12 08:31 | XRay Report ---
XR chest 2V PA/lateral HISTORY: Left-sided pacemaker placement. COMPARISON: Chest 12/10/2018. FINDINGS: Interval placement of left-sided dual-chamber pacemaker. The leads appear intact. No pneumo thorax. The lungs are clear. The heart is normal in size. No pleural effusions. There are poststernot mitchel changes. IMPRESSION: Status post left-sided pacemaker. No pneumothorax. Electronically signed by: Kev Colon M.D. 12/12/2018 8:30 AM
[2018-12-12] MEDS: CEROVITE ADV FORMULA TAB PO SCH (08:41)
[2018-12-12] MEDS: ASPIRIN 81 MG ECTAB PO SCH (08:41)
[2018-12-12] MEDS: ARTIFICIAL TEARS OPB SCH (08:44)
--- NOTE | 2018-12-12 08:47 | Cardiology Progress Note ---
Date of Service December 12, 2018 Assessment & Plan (1) Status post cardiac pacemaker procedure: He is doing well post pacemaker implantation, the site looks good, pacemaker measurements are good, the x-ray looks good and he feels good. From my standpoint he is stable for discharge. I change the dressing, that should remain on and dry for 2 days, he can then be removed. He should refrain from lifting his left arm overhead for 2 weeks, he is driving to [place] soon (he would like to leave early next week) which I think is safe as long as things look good before he goes. Subjective He is feeling well today, he has minimal incisional discomfort. No lightheadedness, dizziness or chest discomfort. Physical Exam Physical Exam: The incision is clean and dry with minimal dried blood along the incision line. No significant ecchymosis, no swelling. No erythema. Results & Data Vital Signs (Past 12 Hours) Vital Signs Temp Pulse Resp BP BP Pulse Ox 12/12/18 07:55 36.6 C 74 20 129/80 97 12/12/18 03:16 36.4 C L 61 18 134/73 94 12/12/18 00:04 37.1 C 64 18 118/72 95 Diagnostic Findings Electrocardiogram post implant: Sinus rhythm with atrial tracking and ventricular pacing appropriately Telemetry: Appropriate pacemaker function with atrial sensing and ventricular pacing predominantly Chest x-ray: Good lead position, no pneumothorax Pacemaker evaluation: Excellent pacing and sensing characteristics PG Care Time/CCT Total # of Minutes Spent Total Time Spent with Patient: Total time spent is greater than 50% in coordination of care (as documented) at patient's floor/unit and/or counseling patient:
--- NOTE | 2018-12-12 09:07 | XRay Report ---
XR chest 2V PA/lateral CLINICAL HISTORY: post pacemaker COMPARISON STUDY: 12/12/2018 FINDINGS: There are postsurgical changes of a midline sternotomy. There is a left subclavian dual-brenton mber central venous pacemaker. There is no failure. There is no focal pulmonary consolidation. There are no pleural effusions. Electrode position is unremarkable. No pneumothorax is visualized.[ IMPRESSION: No active disease in the chest. Electronically signed by: Dmitry Ardon M.D. 12/12/2018 9:06 AM
[2018-12-12] MEDS ORDERED: LOSARTAN POTASSIUM 50 MG TAB PO SCH (09:30)
[2018-12-12] MEDS ORDERED: METOPROLOL SUCC 25MG EXT REL TAB PO SCH (09:30)
--- NOTE | 2018-12-12 09:39 | Cardiology Progress Note ---
Date of Service December 12, 2018 Assessment & Plan (1) Third degree AV block: (2) History of aortic valve replacement with bioprosthetic valve: Stable s/p dual chamber Medtronic PPM placement. EP input noted and appreciated. CXR with no PTX and with appropriate lead position. Device interrogation this am with normal function. Pt to have wound check, device interrogation on 12/16/18 , Bob Anaya, 1 pm, scheduling is in process. Wound care: Dressing changed this am, 12/12/18 and should remain on and dry for 2 days, he can then be removed. He should refrain from lifting his left arm overhead for 2 weeks ACTIVITY RECOMMENDATIONS: * Do not raise affected arm over head for 2 weeks. SPECIAL CARE INSTRUCTIONS: * If bleeding occurs, apply direct pressure to area for 5 minutes. * Call your doctor if you have severe pain, fever, drainage or bleeding at site. * Keep dressing on and dry for 48 hours then remove. * Keep any scheduled doctor's appointment. * Implant Card - hand held device with website information given. SKIN IRRITATION: * You may experience some redness and/or swelling in the area where radiation was administered. If any skin irritation occurs, please contact your family physician. FOLLOW UP VISIT: Keep any scheduled doctor appointments. (3) CAD (coronary artery disease): Resume metprolol. On ASA for CAD and bio AVR. (4) Hypertension: Resume losartan. (5) Dyslipidemia: Continue Rosuvastatin Disposition: Stable for discharge from cardiac perspective, with plan as above. If device check OK on Sunday, will allow pt to drive to [place]. Subjective CC: follow up exertional fatigue and shortness of breath Subjective: Patient feeling well. Telemetry reveals SR with atral sensing and ventricular pacing. Review of Systems Review of Systems: All systems reviewed & are unremarkable except as noted in HPI & below Physical Exam Physical Exam: Temp Pulse Resp BP Pulse Ox 36.6 C 74 20 129/80 97 12/12/18 07:55 12/12/18 07:55 12/12/18 07:55 12/12/18 07:55 12/12/18 07:55 Constitutional: WD/WN, vitals as above Respiratory: normal respiratory effort, lungs clear to auscultation Cardiovascular: RRR, no murmur, no edema Chest (Breasts): Chest: + pacemaker (dress, left subclavian) Gastrointestinal (Abdomen): normal bowel sounds, soft, nontender, no hepatosplenomegaly Musculoskeletal: no cyanosis or clubbing, extremities motor strength 5/5 Neurologic: PERRL, EOMI, accommodation nl, no face palsy, no dysarthria Results & Data Vital Signs (Past 12 Hours) Vital Signs Temp Pulse Resp BP BP Pulse Ox 12/12/18 07:55 36.6 C 74 20 129/80 97 12/12/18 03:16 36.4 C L 61 18 134/73 94 12/12/18 00:04 37.1 C 64 18 118/72 95 Laboratory Results CBC 12/12/18 Range/Units 06:16 WBC 8.70 (4.8-10.8) K/uL RBC 5.35 (4.7-6.1) M/uL Hgb 15.9 (14.0-18.0) g/dL Hct 46.4 (42-52) % Plt Count 138 (130-400) K/uL Comprehensive Metabolic Panel 12/12/18 Range/Units 06:16 Sodium 137 (136-145) mmol/L Potassium 4.3 (3.5-5.1) mmol/L Chloride 107 (98-107) mmol/L Carbon Dioxide 25 (21-32) mmol/L BUN 26 H (7-18) mg/dl Creatinine 1.36 (0.6-1.4) mg/dl Glucose 93 (70-99) mg/dl Calcium 8.8 (8.5-10.1) mg/dl Intake and Output 12/11/18 12/12/18 12/12/18 22:59 06:59 14:59 Intake Total 100 / 480 Output Total Balance Intake: Oral 100 / 480 Output: Urine Other: Weight 78.3 kg
[2018-12-12] MEDS: HEPARIN SOD 5,000 UNIT/0.5 ML VIAL SQ SCH (10:09)
--- NOTE | 2018-12-12 12:31 | Discharge Summary ---
Date of Service December 12, 2018 Admission HPI Per Admitting Provider 73yo M with a PMH of bioprosthetic redo [place] [facility] [place] (s/p CABG in 2005), LBBB, systolic HF, CLL and other medical problems listed below who presents with fatigue and shortness of breath x 1 week. Is very physically active at baseline with hiking and hunting but recently noticed a decline in activity tolerance, becoming SOB walking up an incline and having to stop. Also endorses dizziness yesterday. Denies near syncope, lightheadedness, chest pain or palpitations. Was seen in cardiology clinic today by Shimon Carlos PA-C and was found to have bradycardia with EKG findings of third-degree AV block with ventricular escape rhythm in the 40 to 45 bpm range at rest. Was evaluated by Dr. Alston in ED, who does not feel patient requires temporary transvenous pacemaker at present because he is hemodynamically stable. Also obtained lyme ab since patient is an avid outdoorsman. Will plan to admit to ICU. Dr. Mancera of plans for pacemaker placement tomorrow (12/11/18) as long as the Lyme screen does not come back suggestive of acute infection. Will hold patient's home dose of metoprolol and losartan. Denies fever, chills, visual changes, shortness of breath, wheezing, nausea, vomiting, abdominal pain, dysuria, diarrhea or constipation. Admission Exam Per Admitting Provider General Appearance: WD/WN, vitals as above, NAD, sitting up in bed, pleasant, conversing easily Head: normocephalic, atraumatic Eyes: normal inspection, PERRL, conjunctivae normal, anicteric sclerae ENT: external ear and nose normal, oropharynx normal Neck: trachea midline, no thyromegaly normal visual inspection Respiratory: normal respiratory effort, lungs clear to auscultation, no wheeze, rales, rhonchi. Normal insp/exp effort, no accessory muscle use Cardiovascular: bradycardic, regular rhythm, no murmur appreciated, normal peripheral pulses. Vessels: no JVD or carotid bruit Chest: normal inspection of chest Abdomen/GI: normal bowel sounds, soft, nontender, no hepatosplenomegaly Extremities/Musculoskelatal: no cyanosis or clubbing, extremities motor strength 5/5 Neurologic: PERRL, EOMI, accommodation nl, no face palsy, no dysarthria CN's II-XI intact bilaterally and moves all extremities Psychiatric: A+Ox3, euthymic affect Skin: no rashes, normal color, warm/dry Principal Diagnosis Third Degree AV block s/p Dual Chamber Medtronic PPM placement H/o Aortic valve replacement with bioprosthetic valve Discharge Exam Constitutional WD/WN, vitals as above Eyes PERRL, conjunctivae normal, anicteric sclerae ENMT external ear and nose normal, oropharynx normal Neck trachea midline, no thyromegaly Respiratory normal respiratory effort, lungs clear to auscultation Cardiovascular RRR, no murmur, no edema Chest (Breasts) Additional Comments: Clean dressing over left anterior chest wall Gastrointestinal (Abdomen) normal bowel sounds, soft, nontender, no hepatosplenomegaly Musculoskeletal no cyanosis or clubbing, extremities motor strength 5/5 Neurologic PERRL, EOMI, accommodation nl, no face palsy, no dysarthria Psychiatric A+Ox3, euthymic affect Discharge Data Allergies Allergy/AdvReac Type Severity Reaction Status Date / Time crab Allergy Unknown SWELLING Verified 08/06/18 07:27 Iodinated Contrast Media Allergy Unknown CHEST Verified 08/06/18 07:27 DISCOMFORT shrimp Allergy Unknown SWELLING Verified 08/06/18 07:27 Lobster Allergy Unknown SWELLING Uncoded 08/06/18 07:27 Consultations 12/10/18 13:35 ED Decision to Admit Stat 12/10/18 13:40 Consult Cardiac Electrophysiology Stat 12/10/18 14:55 Consult Cardiology Routine Consult Case Management - Discharge Planning Routine Consult Sausage Canner Routine Procedures Performed Operation Date: 12/11/18 08:00 Actual Procedures p Pacer with A/V Leads (Dual) - Asif Mancera MD s Venogram, Unilateral - Asif Mancera MD Ordered Studies 12/11/18 06:38 CL Cath Imgs for PACS use only Routine Hospital Course (1) Third degree AV block: Patient was seen in cardiology clinic and was found to have bradycardia with third-degree AV block with ventricular escape rhythm in the 40 to 45 bpm range at rest and sent to ER. He was admitted to ICU and evaluated by cardiology Negative lyme testing He got Pacemaker placement pm 12/11/18 Patient is currently hemodynamically stable Will follow up with cardiology office on 12/16/18 Educated on activity and wound care needs 2D echo with LVEF 45-50% , unchanged compared to 09/2018 Resume home metoprolol on discharge (2) Dyslipidemia: Continue home rosuvastatin (3) History of aortic valve replacement with bioprosthetic valve: H/o bioprosthetic redo AV [place] [facility] Original AV replaceme nt performed in 2005 (4) CLL (chronic lymphocytic leukemia): Follows with heme onc. Asymptomatic from his CLL and lymphocytosis is mild Next heme onc appt in April 2019 Total Time Total Time Spent Total Time Spent (In Minutes): 35 Total Time Includes: Examination of the Patient, Discharge Planning, Medication Reconciliation and Communication With Other Providers Discharge Plan Discharge Items Patient Disposition: Home - Self-Care Reason For Visit: COMPLETE HEART BLOCK Discharge Diagnosis: Complete heart block s/p Pacemaker Placement Condition on Discharge: Good Activity: As commented below Activity Comment: Do not raise affected arm over head for 2 weeks. Non-emergency contact: Primary Care Provider and Human Resources Compensation Analyst Call non-emergency contact if: you have any medication questions Follow-up/Referrals: Kinsey Connor MD [Primary Care Provider] - 12/19/18 10:40 am Diet: Heart Healthy Addtl Attending Provider Instructions: Mr Kim. You were sent in to the hospital from your Doctor's office where you were seen for fatigue and shortness of breath on exertion for about 1 week. You were evaluated in ER and found to have complete or third degree heart block. You were admitted to the intensive care unit. You were seen by Human Resources Compensation Analyst and got a pacemaker put in. It is important you follow up instructions provided regarding activity and wound care until evaluated in the office on Sunday. Please follow up with your Primary Doctor's appointment as well as the Human Resources Compensation Analyst office. Please continue your medications as prescribed. It was a pleasure taking care of you. Pending Studies at Discharge: No Stand-Alone Forms: My [employer]aze[employer], Smoking Cessation Medications and DC Order Prescriptions: Continued losartan 50 mg Tablet 50 mg PO QAM RF: 0 amoxicillin 500 mg Capsule 500 mg PO DIRECTED PRN (Reason: Prior to Dental Work) RF: 0 polyvinyl alcohol [Artificial Tears (polyvin alc)] 1.4 % Drops 1 drp OPB BID RF: 0 aspirin 81 mg Tablet,Delayed Release (Dr/Ec) 81 mg PO QAM RF: 0 nitroglycerin [Nitrostat] 0.4 mg Tablet, Sublingual 0.4 mg Sublingual DIRECTED PRN (Reason: Chest Pain) RF: 0 rosuvastatin [Crestor] 20 mg Tablet 20 mg PO QPM RF: 0 PreserVision AREDS-2 [id number] is-[id number]-[id number]-mg Capsule 1 tab PO BID RF: 0 metoprolol succinate 25 mg Tablet Extended Release 24 Hr 25 mg PO DAILY RF: 0 Discharge Orders: Discharge Order (Routine); Ordered 12/12/18 Ordered By: Alice Acharya/Other Patient Handouts: Pacemaker, Implantation Pacemaker Dc Admission Data Admit Date/Time: 12/10/18 13:47 Attending Provider: Alice Torres I. Admit Provider: Earnestine Anderson Primary Care Provider: Kinsey Connor Other Providers: Earnestine Anderson ; Asif Mancera ; Evangelista Alston ; Ena Oh Other Interventions: Discharge Summary Assessment (RN) Last Done: 12/12/18 12:38 DC Date/Time DO NOT enter until pt leaves facility: 12/12/18 13:05
== END 2018-12-12 13:05 | disposition home or self-care (01) | DRG 243 ==
LOC: ED 12:30 → SUATTDRO 13:47 → 1E 13:47 → 2E 12-11 13:47